=== PATIENT | female | born 1940 | race Caucasian/White ===

== ENCOUNTER 2016-12-24 13:48 | Inpatient (IN) | payer MEDICARE, BC ==
[~2016-12-24] VITALS: Ht 167.6 cm; Wt 81.4 kg
[2016-12-24] VITALS (8 sets, daily range): BP systolic 117–196; BP diastolic 60–91; PULSE 83–119; RESP 14–22; TEMP 97.5–98.2; O2SAT 94–100
[~2016-12-24 13:48] MED LIST: CALA180T PO; DILT240C7 PO; ENOX100P SQ; FLEC100 PO; FURO1TAB93 PO; GLUC1000 PO; LEVEMIR SQ; MOBI15TA PO; MONT10TA2 PO; POTA-267 PO; QUIN20TA22 PO; WARF5TAB PO
[2016-12-24] MEDS ORDERED: DILT360C12 PO (14:09)
[2016-12-24] MEDS ORDERED: FLEC100T PO (14:09)
[2016-12-24] MEDS ORDERED: WARF-23 PO (14:13)
[2016-12-24] MEDS ORDERED: QUIN20TA4 PO (14:13)
[2016-12-24] MEDS ORDERED: INSU1INJ5 SQ (14:13)
[2016-12-24] MEDS ORDERED: MONT10TA4 PO (14:13)
[2016-12-24] MEDS ORDERED: CANA100T PO (14:13)
[2016-12-24] MEDS ORDERED: MELO-1 PO (14:13)
[2016-12-24] MEDS ORDERED: METF1000 PO (14:13)
[2016-12-24] MEDS ORDERED: SIMV5TAB3 PO (14:13)
[2016-12-24] MEDS ORDERED: SODIUM CHLORIDE 0.9% FLUSH 10 ML FLUSH IVF PRN (14:30)
--- NOTE | 2016-12-24 14:40 | PD ---
HPI Chief Complaint: Abnormal Results Time Seen by Provider: 14:29 Travel History International Travel<30 days: No Contact w/Intl Traveler<30days: No Traveled to known affect area: No History of Present Illness HPI Patient is a 76 -year-old female presenting to the emergency department due to abnormal labs. Patient was sent by her air cargo ground operations supervisor Dr. Baron, due to an INR that was reportedly 16. Additionally patient reported to him that she had been more short of breath with and without exertion and had a CT scan of the chest performed this morning as outpatient. She states that she has a history of COPD and the shortness of breath has been worsening for the last year. He does sleep with a wedge and one pillow at night. Patient also reports dysuria and cloudy urine for the last week. She states that she was recently discharged from the hospital on December 12 due to pelvic pain and dysuria. Patient is followed by Dr. Cowan as well as Dr. Sanders who she is supposed to see later this week. PFSH Past Medical History Hx Anticoagulant Therapy: Yes (STOPPED YESTERDAY) Atrial Fibrillation: Yes Heart Rhythm Problems: Yes (sick sinus syndrome, carotid stenosis) Cancer: No Cardiovascular Problems: Yes Chest Pain: No Congestive Heart Failure: Yes COPD: Yes Cerebrovascular Accident: Yes Diabetes: Yes (METFORMIN 12/24/16) Gastrointestinal Disorders: No Glaucoma: No Hepatitis: No Hiatal Hernia: No Hypertension: Yes Neurologic: Yes (TIA) Respiratory: Yes Integumentary: No Thyroid Disease: No Past Surgical History Cardiac Surgery: Yes (PACEMAKER) Genitourinary Surgery: Yes (CYSTOCILE REPAIR) Gynecologic Surgery: Yes (HYSTERECTOMY) Hysterectomy: Yes Other Surgery: Yes (GALLBLADDER REMOVED) Social History Alcohol Use: No Tobacco Use: No Substance Use: No Allergies-Medications (Allergen,Severity, Reaction): Coded Allergies: No Known Allergies (Unverified , 12/24/16) Reported Meds & Prescriptions Reported Meds & Active Scripts Active Reported Levemir Flextouch Pen Inj (Insulin Detemir) 300 unit/3 ML Pen 25 Units SQ Warfarin 5 Mg Tab 5 Mg PO DAILY Simvastatin 5 Mg Tab 5 Mg PO DAILY Invokana (Canagliflozin) 100 Mg Tab 100 Mg PO DAILY Take before 1st meal of day. Quinapril (Quinapril HCl) 20 Mg Tab 20 Mg PO BID Montelukast (Montelukast Sodium) 10 Mg Tab 10 Mg PO HS Meloxicam 15 Mg Tab 15 Mg PO DAILY Metformin (Metformin HCl) 1,000 Mg Tab 1,000 Mg PO BIDPC With meals Diltiazem CD 24 HR 360 Mg Capcr 360 Mg PO DAILY Review of Systems Except as stated in HPI: all other systems reviewed are Neg General / Constitutional: No: Fever, Chills Eyes: No: Blurred Vision, Visual changes HENT: No: Headaches, Lightheadedness Cardiovascular: No: Chest Pain or Discomfort Respiratory: Positive: Shortness of Breath, No: Cough, Wheezing, Pleuritic Pain Gastrointestinal: Positive: Diarrhea (chronic issue), No: Nausea, Vomiting, Abdominal Pain Genitourinary: Positive: Frequency, Dysuria, Pelvic Pain Musculoskeletal: No: Myalgias Neurologic: No: Dizziness, Syncope, Focal Abnormalities Hematologic/Lymphatic: No: Easy Bruising Physical Exam Narrative GENERAL: Overweight, well-developed, alert elderly female. Resting comfortably in no acute distress. SKIN: Focused skin assessment warm/dry. HEAD: Atraumatic. Normocephalic. EYES: Pupils equal and round. No scleral icterus. No injection or drainage. ENT: No nasal bleeding or discharge. Mucous membranes pink and moist. NECK: Trachea midline. No JVD. CARDIOVASCULAR: Regular rate and rhythm. No murmur appreciated. RESPIRATORY: No accessory muscle use. Clear to auscultation. Breath sounds equal bilaterally. GASTROINTESTINAL: Abdomen soft, non-tender, nondistended. Hepatic and splenic margins not palpable. MUSCULOSKELETAL: No obvious deformities. No clubbing. No cyanosis. No edema. NEUROLOGICAL: Awake and alert. No obvious cranial nerve deficits. Motor grossly within normal limits. Normal speech. PSYCHIATRIC: Appropriate mood and affect; insight and judgment normal. Data Data Last Documented VS Vital Signs Date Time Temp Pulse Resp B/P Pulse Ox O2 Delivery O2 Flow Rate FiO2 12/24/16 16:30 88 21 196/86 98 Room Air 12/24/16 13:50 97.5 Orders Complete Blood Count With Diff (12/24/16 13:58) Comprehensive Metabolic Panel (12/24/16 13:58) Prothrombin Time / Inr (Pt) (12/24/16 13:58) Act Partial Throm Time (Ptt) (12/24/16 13:58) Urinalysis - C+S If Indicated (12/24/16 14:18) Type And Screen (12/24/16 14:18) Ecg Monitoring (12/24/16 14:18) Iv Access Insert/Monitor (12/24/16 14:18) Oximetry (12/24/16 14:18) Sodium Chloride 0.9% Flush (Ns Flush) (12/24/16 14:30) B-Type Natriuretic Peptide (12/24/16 14:19) Urine Culture (12/24/16 14:50) Ceftriaxone Inj (Rocephin Inj) (12/24/16 16:00) Phytonadione Inj (Vitamin K Inj) (12/24/16 18:00) Admit Order (Ed Use Only) (12/24/16 17:16) Labs Laboratory Tests Test 12/24/16 12/24/16 12/24/16 14:15 14:50 16:10 White Blood Count 7.1 TH/MM3 Red Blood Count 4.89 MIL/MM3 Hemoglobin 13.1 GM/DL Hematocrit 39.6 % Mean Corpuscular Volume 81.1 FL Mean Corpuscular Hemoglobin 26.8 PG Mean Corpuscular Hemoglobin 33.0 % Concent Red Cell Distribution Width 15.2 % Platelet Count 309 TH/MM3 Mean Platelet Volume 7.9 FL Neutrophils (%) (Auto) 66.6 % Lymphocytes (%) (Auto) 20.4 % Monocytes (%) (Auto) 10.9 % Eosinophils (%) (Auto) 0.7 % Basophils (%) (Auto) 1.4 % Neutrophils # (Auto) 4.7 TH/MM3 Lymphocytes # (Auto) 1.5 TH/MM3 Monocytes # (Auto) 0.8 TH/MM3 Eosinophils # (Auto) 0.1 TH/MM3 Basophils # (Auto) 0.1 TH/MM3 CBC Comment DIFF FINAL Differential Comment Sodium Level 131 MEQ/L Potassium Level 5.0 MEQ/L Chloride Level 100 MEQ/L Carbon Dioxide Level 21.4 MEQ/L Anion Gap 10 MEQ/L Blood Urea Nitrogen 16 MG/DL Creatinine 0.97 MG/DL Estimat Glomerular Filtration 56 ML/MIN Rate Random Glucose 112 MG/DL Calcium Level 9.4 MG/DL Total Bilirubin 0.2 MG/DL Aspartate Amino Transf 31 U/L (AST/SGOT) Alanine Aminotransferase 35 U/L (ALT/SGPT) Alkaline Phosphatase 118 U/L B-Type Natriuretic Peptide 23 PG/ML Total Protein 7.4 GM/DL Albumin 2.9 GM/DL Blood Type A POSITIVE Antibody Screen NEGATIVE Blood Bank Comment Urine Color YELLOW Urine Turbidity CLOUDY Urine pH 6.0 Urine Specific [place] 1.023 Urine Protein 30 mg/dL Urine Glucose (UA) 1000 mg/dL Urine Ketones 10 mg/dL Urine Occult Blood LARGE Urine Nitrite NEG Urine Bilirubin NEG Urine Urobilinogen LESS THAN 2.0 MG/DL Urine Leukocyte Esterase LARGE Urine RBC /hpf Urine WBC /hpf Urine WBC Clumps OCC Urine Bacteria FEW /hpf Microscopic Urinalysis Comment CULTURE INDICATED Prothrombin Time GREATER THAN 180.0 SEC Prothromb Time International GREATER THAN Ratio 16.7 RATIO Activated Partial 109.5 SEC Thromboplast Time MDM Medical Decision Making Medical Screen Exam Complete: Yes Emergency Medical Condition: Yes Interpretation(s) Laboratory Tests Test 12/24/16 12/24/16 12/24/16 14:15 14:50 16:10 White Blood Count 7.1 TH/MM3 Red Blood Count 4.89 MIL/MM3 Hemoglobin 13.1 GM/DL Hematocrit 39.6 % Mean Corpuscular Volume 81.1 FL Mean Corpuscular Hemoglobin 26.8 PG Mean Corpuscular Hemoglobin 33.0 % Concent Red Cell Distribution Width 15.2 % Platelet Count 309 TH/MM3 Mean Platelet Volume 7.9 FL Neutrophils (%) (Auto) 66.6 % Lymphocytes (%) (Auto) 20.4 % Monocytes (%) (Auto) 10.9 % Eosinophils (%) (Auto) 0.7 % Basophils (%) (Auto) 1.4 % Neutrophils # (Auto) 4.7 TH/MM3 Lymphocytes # (Auto) 1.5 TH/MM3 Monocytes # (Auto) 0.8 TH/MM3 Eosinophils # (Auto) 0.1 TH/MM3 Basophils # (Auto) 0.1 TH/MM3 CBC Comment DIFF FINAL Differential Comment Sodium Level 131 MEQ/L Potassium Level 5.0 MEQ/L Chloride Level 100 MEQ/L Carbon Dioxide Level 21.4 MEQ/L Anion Gap 10 MEQ/L Blood Urea Nitrogen 16 MG/DL Creatinine 0.97 MG/DL Estimat Glomerular Filtration 56 ML/MIN Rate Random Glucose 112 MG/DL Calcium Level 9.4 MG/DL Total Bilirubin 0.2 MG/DL Aspartate Amino Transf 31 U/L (AST/SGOT) Alanine Aminotransferase 35 U/L (ALT/SGPT) Alkaline Phosphatase 118 U/L B-Type Natriuretic Peptide 23 PG/ML Total Protein 7.4 GM/DL Albumin 2.9 GM/DL Blood Type A POSITIVE Antibody Screen NEGATIVE Blood Bank Comment Urine Color YELLOW Urine Turbidity CLOUDY Urine pH 6.0 Urine Specific [place] 1.023 Urine Protein 30 mg/dL Urine Glucose (UA) 1000 mg/dL Urine Ketones 10 mg/dL Urine Occult Blood LARGE Urine Nitrite NEG Urine Bilirubin NEG Urine Urobilinogen LESS THAN 2.0 MG/DL Urine Leukocyte Esterase LARGE Urine RBC /hpf Urine WBC /hpf Urine WBC Clumps OCC Urine Bacteria FEW /hpf Microscopic Urinalysis Comment CULTURE INDICATED Prothrombin Time GREATER THAN 180.0 SEC Prothromb Time International GREATER THAN Ratio 16.7 RATIO Activated Partial 109.5 SEC Thromboplast Time Vital Signs Date Time Temp Pulse Resp B/P Pulse Ox O2 Delivery O2 Flow Rate FiO2 12/24/16 14:16 86 14 150/69 100 12/24/16 13:50 97.5 91 18 117/63 94 Room Air Differential Diagnosis Supratherapeutic INR versus hemorrhage versus GI bleed versus medication noncompliance versus risk for bleeding versus other Narrative Course Patient is a 76-year-old female sent by her air cargo ground operations supervisor Dr. Baron due to an INR reported at 16.7. He also faxed over office notes which describe her recent hospitalization due to the abdominal pain/pelvic pain, dysuria. Patient was positive for urinary tract infection, acute kidney injury, dehydration and hyperkalemia. She went to her air cargo ground operations supervisor for preoperative clearance for a cystoscopy which resulted the elevated INR. According to the notes sent by Dr. Baron patient has been noncompliant with Coumadin. Patient has been instructed to stop Coumadin several times in the past due to elevated INR, but according to these medical records she would resume it on her own. Outpatient CT scan of the chest performed [place] today was negative for pulmonary embolism. On review of patient's medical records on 12/07/[address] scan abdomen and pelvis showed marked circumferential mural thickening and mucosal enhancement about the urinary bladder suspicious for cystitis, which is the reason for the cystoscopy as outpatient. Hemoccult card was negative for occult blood. INR elevated >16.7. Vitamin K 10 mg x 1 dose IV ordered. CBC is unremarkable Chemistry with a sodium of 131, albumin 2.9, BNP 23 Urinalysis with large occult blood, large leukocyte esterase, white blood cell clumps and bacteria. Patient given 1 g of Rocephin for urinary tract infection. Discussed with Dr. Mancini who accepted admission. Discussed with patient who is agreeable to inpatient stay. She is resting comfortably. BP elevated, hydralazine ordered times one dose. HemaPrompt Point of Care Fecal Specimen Occult Blood: Negative Diagnosis Primary Impression: Supratherapeutic INR Additional Impressions: Urinary tract infection Qualified Code: N30.01 - Acute cystitis with hematuria At risk for bleeding associated with anticoagulants Hypertension Qualified Code: I10 - Essential hypertension Diabetes Qualified Code: E11.8 - Type 2 diabetes mellitus with complication, unspecified custodial insulin use status Admitting Information Admitting Physician Requests: Admit Condition: Stable Nori Munson December 24, 2016 14:40
[2016-12-24 14:42] LABS: AUTOMATED NEUTROPHIL # 4.7 TH/MM3 (1.8-7.7); BASOPHIL # 0.1 TH/MM3 (0-0.2); BASOPHIL % 1.4 % (0.0-2.0); EOSINOPHIL # 0.1 TH/MM3 (0-0.4); EOSINOPHIL % 0.7 % (0.0-4.0); HEMATOCRIT 39.6 % (35.0-46.0); HEMO FLAGS DIFF FINAL; LYMPH % 20.4 % (9.0-44.0); LYMPHOCYTE # 1.5 TH/MM3 (1.0-4.8); MEAN CELL VOLUME 81.1 FL (80.0-100.0); MEAN CORPUSCULAR HEMOGLOBIN 26.8 PG (27.0-34.0); MONO % 10.9 % (0.0-8.0); NEUT % 66.6 % (16.0-70.0); PLATELET COUNT 309 TH/MM3 (150-450); RED BLOOD COUNT 4.89 MIL/MM3 (4.00-5.30); RED CELL DISTRIBUTION WIDTH 15.2 % (11.6-17.2); WHITE BLOOD COUNT 7.1 TH/MM3 (4.0-11.0)
[2016-12-24 14:58] LABS: ANION GAP 10 MEQ/L (5-15); AST (GOT) 31 U/L (15-37); BICARBONATE 21.4 MEQ/L (21.0-32.0); BLOOD UREA NITROGEN 16 MG/DL (7-18); CHLORIDE 100 MEQ/L (98-107); GLOMERULAR FILTRATION RATE 56 ML/MIN (>89); SODIUM (NA) 131 MEQ/L (136-145)
[2016-12-24 14:59] LABS: ALKALINE PHOSPHATASE 118 U/L (45-117); ALT (GPT) 35 U/L (10-53); TOTAL BILIRUBIN ADULT 0.2 MG/DL (0.2-1.0)
[2016-12-24 15:14] LABS: BACTERIA, URINE FEW /hpf; BLOOD, URINE LARGE (NEG); COMMENT (UR) CULTURE INDICATED; CULTURE IF INDICATED CULTURE INDICATED; GLUCOSE,URINE 1000 mg/dL (NEG); KETONE, URINE 10 mg/dL (NEG); NITRITE,URINE NEG (NEG); URINE COLOR YELLOW (YELLW/STRAW)
[2016-12-24] MEDS ORDERED: cefTRIAXone INJ 1,000 MG in SODIUM CHLORIDE 0.9% INJ 100 ML IV ONE (16:00)
[2016-12-24 17:01] LABS: APTT (PATIENT) 109.5 SEC (24.3-30.1)
[2016-12-24 17:02] LABS: INTERNATIONAL NORMALIZED RATIO GREATER THAN 16.7 RATIO
[2016-12-24 17:03] LABS: PROTHROMBIN TIME - PATIENT GREATER THAN 180.0 SEC (9.8-11.6)
[2016-12-24] MEDS ORDERED: SENNOSIDES 8.6 MG TAB PO PRN (17:30)
[2016-12-24] MEDS ORDERED: NALOXONE HCL 0.4 MG/ML AMP IV PRN (17:30)
[2016-12-24] MEDS ORDERED: SODIUM CHLORIDE 0.9% FLUSH 10 ML FLUSH IV FLUSH PRN (17:30)
[2016-12-24] MEDS ORDERED: LACTULOSE SYRUP 20 GM/30 ML CUP PO PRN (17:30)
[2016-12-24] MEDS ORDERED: MAGNESIUM HYDROXIDE SUSP 30 ML CUP PO PRN (17:30)
[2016-12-24] MEDS ORDERED: BISACODYL 10 MG SUPP RECTAL PRN (17:30)
[2016-12-24] MEDS ORDERED: hydrALAZINE HCL 20 MG/ML VIAL IV PUSH ONE (17:45)
[2016-12-24] MEDS ORDERED: PHYTONADIONE INJ 10 MG in SODIUM CHLORIDE 0.9% INJ 50 ML IV ONE (18:00)
[2016-12-24] MEDS ORDERED: GLUCAGON 1 MG/ML VIAL OTHER PRN (18:45)
[2016-12-24] MEDS ORDERED: SODIUM CHLOR 0.9% 1000 ML INJ 1,000 ML IV SCH (18:45)
[2016-12-24] MEDS ORDERED: DEXTROSE 50% IN WATER 50 ML VIAL(D50) IV PRN (18:45)
--- NOTE | 2016-12-24 18:56 | HHI.PR ---
Objective Objective Results - Vital Signs Date Time Temp Pulse Resp B/P Pulse Ox O2 Delivery O2 Flow Rate FiO2 12/24/16 16:30 88 21 196/86 98 Room Air 12/24/16 15:32 94 Room Air 12/24/16 15:31 85 22 150/91 94 Room Air 12/24/16 14:16 86 14 150/69 100 12/24/16 13:50 97.5 91 18 117/63 94 Room Air Result Diagram: 12/24/16 1415 12/24/16 1415 Physical Exam Physical Exam PHYSICAL EXAMINATION GENERAL: This is a well-developed, well-nourished female who appears to be in no acute distress. She is alert and awake, []. HEAD: Normocephalic without any lesion or mass noted. Facial features appear symmetric. OROPHARYNGEAL: Oropharynx without erythema or edema. NECK: Supple. No nuchal rigidity or lymphadenopathy. Trachea midline without deviation. CARDIAC: Regular rhythm, regular rate, S1 and S2 are heard. Murmur []; no gallops or rubs. LUNGS: Clear to auscultation bilaterally. [] wheeze, [] rhonchi or [] rale. No use of accessory muscles on inspiration or expiration. ABDOMEN: Soft, nontender, no organomegaly or masses. Bowel sounds are heard in all four quadrants. No rebound. No guarding. EXTREMITIES: [] edema. Pulses equal bilateral. [] cyanosis. NEUROLOGICAL: Patient mood and affect appropriate. No focal deficit SKIN:Warm and moist A/P Assessment and Plan dictated, [id number] Started on Rocephin 2gm. IV, patient has been recently treated. [place] December 24, 2016 18:55
[2016-12-24] MEDS: LISINOPRIL 20 MG TAB PO SCH (21:00)
[2016-12-24] MEDS: INSULIN ASPART SUPPLEMENTAL SCALE SQ SCH (21:00)
[2016-12-24] MEDS: MONTELUKAST SODIUM 10 MG TAB PO SCH (22:30)
[2016-12-24] MEDS: DOCUSATE SODIUM 50 MG/SENNA 8.6 MG TAB PO SCH (22:31)
[2016-12-24] MEDS: SODIUM CHLORIDE 0.9% FLUSH 10 ML FLUSH IV FLUSH SCH (22:33)
[2016-12-25 04:25] LABS: AUTOMATED NEUTROPHIL # 4.1 TH/MM3 (1.8-7.7); BASOPHIL % 0.7 % (0.0-2.0); EOSINOPHIL # 0.1 TH/MM3 (0-0.4); HEMATOCRIT 38.3 % (35.0-46.0); HEMO FLAGS DIFF FINAL; LYMPH % 18.2 % (9.0-44.0); LYMPHOCYTE # 1.1 TH/MM3 (1.0-4.8); MEAN CELL VOLUME 80.5 FL (80.0-100.0); MEAN CORPUSCULAR HEMOGLOBIN 26.3 PG (27.0-34.0); MEAN CORPUSCULAR HGB CONC 32.7 % (32.0-36.0); MONO % 14.7 % (0.0-8.0); NEUT % 65.4 % (16.0-70.0); PLATELET COUNT 268 TH/MM3 (150-450); RED BLOOD COUNT 4.75 MIL/MM3 (4.00-5.30); RED CELL DISTRIBUTION WIDTH 15.3 % (11.6-17.2); WHITE BLOOD COUNT 6.2 TH/MM3 (4.0-11.0)
[2016-12-25 04:38] VITALS: BP 123/56; PULSE 86; RESP 17; TEMP 98; O2SAT 95
[2016-12-25 04:39] LABS: INTERNATIONAL NORMALIZED RATIO 1.5 RATIO; PROTHROMBIN TIME - PATIENT 17.4 SEC (9.8-11.6)
[2016-12-25 04:48] LABS: BICARBONATE 21.1 MEQ/L (21.0-32.0); POTASSIUM 5.3 MEQ/L (3.5-5.1)
[2016-12-25 07:34] VITALS: BP 129/60; PULSE 88; RESP 20; TEMP 97.7; O2SAT 92
[2016-12-25 08:20] VITALS: PULSE 87
--- NOTE | 2016-12-25 08:21 | MH ---
cc: STEFAN SANCHEZ MD DATE OF ADMISSION 12/24/2016 DATE OF 1940 The case has been discussed with Dr. Mancini. CHIEF COMPLAINT Chills, cold sensation, UTI symptoms with dysuria. High INR. Travel in the last 30 days none. HISTORY OF PRESENT ILLNESS This is a 76-year-old female who has come to the emergency room with abnormal labs. She was seen by her variety performer yesterday who reported an INR according to the record at 16. She was started on a new blood thinning medication but states that she has been having shortness of breath all day today. She is extremely anxious and is currently complaining of shortness of breath but her O2 sat is 97-99. She is on oxygen at 2 liters. She also complains of significant burning and dysuria when she goes to the bathroom. She has had diarrhea off and on for the past few weeks and states that she possibly had diarrhea this morning. She is a poor historian. She is given me multiple symptoms that are given her problems but cannot always give me the exact information or time frame that these things are happening. She was recently discharged from the hospital on December 12 with pelvic pain and dysuria. PAST MEDICAL HISTORY 1. Coumadin therapy that was stopped yesterday. 2. History of atrial fib. 3. Sick sinus syndrome. 4. Carotid stenosis. 5. Cardiovascular disease. 6. Congestive heart failure. 7. COPD. 8. CVA. 9. Diabetes mellitus type 2, takes metformin. 10. Hypertension. 11. Transient ischemic attacks. 12. Anxiety. PAST SURGICAL HISTORY 1. Pacemaker. 2. Cystocele repair. 3. Hysterectomy. 4. Gallbladder removed. ALLERGIES None known. MEDICATIONS Reported: 1. Levemir insulin. 2. Coumadin has been stopped so we will take that off. 3. Simvastatin. 4. Invokana. 5. Quinipril. 6. Montelukast. 7. Meloxicam. 8. Metformin, 9. Diltiazem. SOCIAL HISTORY Denies any tobacco, alcohol or illicit drug use. REVIEW OF SYSTEMS Limited review due to her poor history but she is having symptoms and struggling with dysuria, diarrhea, cold sensation all the time, agitation and anxiety. Otherwise systems are negative and are unremarkable. PHYSICAL EXAMINATION VITAL SIGNS: Temperature is 97.5, pulse 88, respirations labile between 18 and 21, blood pressure initially on admission 117/63 now 196/86. Has been 150/91. O2 sats 98% currently on room air or O2 at 2 liters p.r.n. GENERAL: Obese, white female looks to be her stated age, resting in the bed. She is alert, awake and slightly anxious. SKIN: Pale, cool extremities but pulses are palpable. HEENT: Atraumatic, normocephalic. PERRL at 2. No scleral icterus. NECK: Supple. CARDIOVASCULAR: S1-S2, regular rate and rhythm. No murmurs, rubs or gallops. RESPIRATORY: Essentially clear anteriorly and posteriorly with no wheezes, rales or rhonchi but she does have low air volumes. GASTROINTESTINAL: Abdomen is round, soft, obese, nontender in the upper quadrants. She does have some generalized tenderness down in the mid lower and pain to light palpation. MUSCULOSKELETAL: She moves all of her extremities with purpose. She is having some mild leg cramps in her lower extremities. NEUROLOGIC: She is alert. A poor historian. She is giving generalized symptom information, mildly agitated over current condition. PSYCHIATRIC: Mood and affect as noted are anxious . LABORATORY DATA Diagnostic data, WBC count 7.1, RBC 4.89, 13.1 hemoglobin, hematocrit 39.6, platelet count 309, monocyte percentage auto 10.9. All of the rest of her differential blood count is normal. Chemistry, sodium is 131, potassium 5.0, chloride 100, carbon dioxide 21.4, anion gap 10, BUN 16, creatinine 0.97, GFR is 56, random glucose 112. She has an abnormal on alkaline phosphatase is 118. BNP is 23. Albumin 2.9. The patient's PT INR is greater than 16.7 and her aPTT is 109.5. Her urine is yellow, cloudy, pH 6.0, specific gravity 1.023, protein is 30, glucose is a 1000, ketones of 10, large amount of occult blood and a large amount of leukocyte esterase. Urobilinogen is less than 2. She has bacteria. We got a urine culture that is indicated. ASSESSMENT/PLAN 1. Coumadin toxicity with subtherapeutic INR. 2. Urinary tract infection with acute cystitis and hematuria. 3. Hypertension, uncontrolled. 4. Diabetes type 2 uncontrolled. 5. Hyponatremia. 6. Elevated alkaline phosphatase. 7. Mild protein calorie malnutrition. Our plan is to admit. We are placing her on observation. We will do ECG monitoring. IV access. Vital signs q.4 or as warranted. Bedrest for activity this p.m. reconcile her medications. Give her hydralazine for uncontrolled blood pressure. Accu-Cheks a.c. and at bedtime with a sliding scale in the glycemic protocol. The patient will be started on her routine meds. She has had multiple labs drawn in the emergency room which includes a dose of IV Rocephin that has been given;. We will maintain her on that medication. To my knowledge the patient is full code, full aggressive care and we will follow. Dictated by: AILEEN Horton MD KAT Mata/MAY /6:46 PM /8:13 AM
[2016-12-25] MEDS: INSULIN ASPART SUPPLEMENTAL SCALE SQ SCH ×4 (08:41→20:22)
[2016-12-25] MEDS: PRAVASTATIN SOD 10 MG TAB PO SCH (08:41)
[2016-12-25] MEDS: DOCUSATE SODIUM 50 MG/SENNA 8.6 MG TAB PO SCH ×2 (08:41→20:26)
[2016-12-25] MEDS: DILTIAZEM-CD 180 MG CAP ER PO SCH (08:41)
[2016-12-25] MEDS: LISINOPRIL 20 MG TAB PO SCH (08:42)
[2016-12-25] MEDS: SODIUM CHLORIDE 0.9% FLUSH 10 ML FLUSH IV FLUSH SCH ×2 (09:00→20:16)
[2016-12-25] MEDS ORDERED: PNEUMOCOCCAL POLYVALENT INJ 25 MCG/0.5 ML SYR IM ONE (09:00)
--- NOTE | 2016-12-25 09:29 | HHI.PR ---
Subjective Subjective Remarks feeling better no cp no sob some dysuria eating okay no fever Review of Systems Constitutional Constitutional Remarks 12 point ROS completed, negative except as noted above Vitals/Results Intake & Output 12/24/16 12/24/16 12/25/16 15:00 23:00 07:00 Intake Total 200 ml 200 ml Output Total 400 ml Balance 200 ml -200 ml Intake Oral 200 ml 200 ml Output Urine Total 400 ml Vital Signs Vital Signs Date Time Temp Pulse Resp B/P Pulse Ox O2 Delivery O2 Flow Rate FiO2 12/25/16 08:20 87 12/25/16 07:34 97.7 88 20 129/60 92 12/25/16 04:38 98.0 86 17 123/56 95 12/24/16 23:49 97.6 106 18 148/81 94 12/24/16 20:15 99 12/24/16 19:36 98.2 106 17 123/61 97 12/24/16 18:44 83 22 132/60 98 12/24/16 16:30 88 21 196/86 98 Room Air 12/24/16 15:32 94 Room Air 12/24/16 15:31 85 22 150/91 94 Room Air 12/24/16 14:16 86 14 150/69 100 12/24/16 13:50 97.5 91 18 117/63 94 Room Air CBC/BMP: 12/25/16 0407 12/25/16 0407 Lab Results Laboratory Tests Test 12/24/16 12/24/16 12/24/16 12/25/16 14:15 14:50 16:10 04:07 White Blood Count 7.1 TH/MM3 6.2 TH/MM3 Red Blood Count 4.89 MIL/MM3 4.75 MIL/MM3 Hemoglobin 13.1 GM/DL 12.5 GM/DL Hematocrit 39.6 % 38.3 % Mean Corpuscular Volume 81.1 FL 80.5 FL Mean Corpuscular Hemoglobin 26.8 PG 26.3 PG Mean Corpuscular Hemoglobin 33.0 % 32.7 % Concent Red Cell Distribution Width 15.2 % 15.3 % Platelet Count 309 TH/MM3 268 TH/MM3 Mean Platelet Volume 7.9 FL 7.7 FL Neutrophils (%) (Auto) 66.6 % 65.4 % Lymphocytes (%) (Auto) 20.4 % 18.2 % Monocytes (%) (Auto) 10.9 % 14.7 % Eosinophils (%) (Auto) 0.7 % 1.0 % Basophils (%) (Auto) 1.4 % 0.7 % Neutrophils # (Auto) 4.7 TH/MM3 4.1 TH/MM3 Lymphocytes # (Auto) 1.5 TH/MM3 1.1 TH/MM3 Monocytes # (Auto) 0.8 TH/MM3 0.9 TH/MM3 Eosinophils # (Auto) 0.1 TH/MM3 0.1 TH/MM3 Basophils # (Auto) 0.1 TH/MM3 0.0 TH/MM3 CBC Comment DIFF FINAL DIFF FINAL Differential Comment Sodium Level 131 MEQ/L 136 MEQ/L Potassium Level 5.0 MEQ/L 5.3 MEQ/L Chloride Level 100 MEQ/L 104 MEQ/L Carbon Dioxide Level 21.4 MEQ/L 21.1 MEQ/L Anion Gap 10 MEQ/L 11 MEQ/L Blood Urea Nitrogen 16 MG/DL 14 MG/DL Creatinine 0.97 MG/DL 0.72 MG/DL Estimat Glomerular Filtration 56 ML/MIN 78 ML/MIN Rate Random Glucose 112 MG/DL 170 MG/DL Calcium Level 9.4 MG/DL 9.3 MG/DL Total Bilirubin 0.2 MG/DL Aspartate Amino Transf 31 U/L (AST/SGOT) Alanine Aminotransferase 35 U/L (ALT/SGPT) Alkaline Phosphatase 118 U/L B-Type Natriuretic Peptide 23 PG/ML Total Protein 7.4 GM/DL Albumin 2.9 GM/DL Blood Type A POSITIVE Antibody Screen NEGATIVE Blood Bank Comment Urine Color YELLOW Urine Turbidity CLOUDY Urine pH 6.0 Urine Specific [place] 1.023 Urine Protein 30 mg/dL Urine Glucose (UA) 1000 mg/dL Urine Ketones 10 mg/dL Urine Occult Blood LARGE Urine Nitrite NEG Urine Bilirubin NEG Urine Urobilinogen LESS THAN 2.0 MG/DL Urine Leukocyte Esterase LARGE Urine RBC /hpf Urine WBC /hpf Urine WBC Clumps OCC Urine Bacteria FEW /hpf Microscopic Urinalysis Comment CULTURE INDICATED Prothrombin Time GREATER THAN 17.4 SEC 180.0 SEC Prothromb Time International GREATER THAN 1.5 RATIO Ratio 16.7 RATIO Activated Partial 109.5 SEC Thromboplast Time Microbiology Microbiology 12/24/16 Urine Culture, Received Pending Physical Exam General General Appearance: Well Developed, Well Nourished, No Acute Distress, Comfortable Eyes Eye Exam: Pupils Equal, Pupils Reactive Ears & Nose Ears & Nose Exam: Nasal Mucosa [place] Throat Throat Exam: Oral Mucosa [place] & Moist Neck Neck Exam: Neck Supple, Trachea Midline Pulmonary Resp Exam: Clear Bilaterally, No Distress Cardiology CV Exam: Good Perfusion Gastrointestinal/Abdomen GI Exam: Soft, Non-Tender, Bowel Sounds Present, Non-Distended Musculoskeletal MS Exam: Joints Intact Integumentary Skin Exam: Warm, Intact Extremeties Extremities Exam: Pedal Pulses Palpable, Trace Edema Neurologic Neuro Exam: Alert, Awake, Oriented, Speech Clear, Moving All Extremities, No Focal Deficits Psychiatric Psych Exam: Appropriate Responses Assessment/Plan Problem List: (1) Urinary tract infection (2) Diabetes (3) Hypertension (4) Supratherapeutic INR (5) Atrial fibrillation (6) History of CVA (cerebrovascular accident) (7) Diarrhea Assessment/Plan 76-year-old presented to emergency room with multiple complaints, diarrhea, supratherapeutic INR, mild shortness of breath, dysuria -Continue with antibiotics, follow urine cultures -Okay to discontinue IV fluids Type 2 diabetes, uncontrolled Continue with Accu-Cheks before meals and at bedtime Chronic A. fib Continue Cardizem Continue with Xarelto Diarrhea, now resolving We'll check stools for C. difficile Hyperkalemia, potassium 5.3 Hold lisinopril today, may resume tomorrow if potassium back to normal. Supratherapeutic INR, INR today 1.5. Continue to follow INR, patient off Coumadin. Attending discussed with patient 's cardiology, patient will be started on Xarelto for improve compliance. Hypertension, hypertensive control Continue home medications Continue when necessary medication Continue with home medications Physical therapy for evaluation and treatment Case management consultation for DC planning, possibly home tomorrow Repeat labs in the morning Discussed with patient Discussed with Dr. Lynch Discussed with RN This patient was seen by myself and Dr. Lynch, this note is written on her behalf Problem Qualifiers (1) Urinary tract infection: Qualified Code: N30.01 - Acute cystitis with hematuria (2) Diabetes: Qualified Code: E11.8 - Type 2 diabetes mellitus with complication, unspecified intermediate manager insulin use status (3) Hypertension: Qualified Code: I10 - Essential hypertension (4) Atrial fibrillation: Qualified Code: I48.91 - Atrial fibrillation, unspecified type Jagruti Kyle December 25, 2016 09:29
--- NOTE | 2016-12-25 09:32 | HHI.FF ---
Face to Face Verification Diagnosis: (1) At risk for bleeding associated with anticoagulants (2) Urinary tract infection (3) Diabetes (4) Hypertension (5) Supratherapeutic INR Physical Therapy Order: Evaluate and Treat Home Health Nursing Order: Medical education Medication education-adverse effect I have seen patient Christen Dee on 12/25/16. My clinical findings support the need for the requested home health care services because: Limited ability to care for self Need for psychosocial assistance I certify that my clinical findings support that this patient is homebound because: Need for psychosocial assistance Jagruti Kyle BRIM SHAPER December 25, 2016 09:32
[2016-12-25 11:17] VITALS: BP 119/57; PULSE 96; RESP 18; TEMP 97.8; O2SAT 95
[2016-12-25 13:41] LABS: C. DIFF EPI 027 PRESUMPTIVE NEGATIVE (NEGATIVE); C. DIFF TOXIN PCR NEGATIVE (NEGATIVE)
[2016-12-25 15:21] VITALS: BP 116/52; PULSE 70; RESP 21; TEMP 97.9; O2SAT 94
[2016-12-25 15:53] LABS: INTERNATIONAL NORMALIZED RATIO 1.3 RATIO; PROTHROMBIN TIME - PATIENT 15.1 SEC (9.8-11.6)
[2016-12-25] MEDS: cefTRIAXone INJ 2,000 MG in SODIUM CHLORIDE 0.9% INJ 100 ML IV SCH (17:58)
[2016-12-25 19:38] VITALS: BP 108/53; PULSE 79; RESP 18; TEMP 97.6; O2SAT 94
[2016-12-25] MEDS: MONTELUKAST SODIUM 10 MG TAB PO SCH (20:16)
[2016-12-26] VITALS (14 sets, daily range): BP systolic 82–129; BP diastolic 50–72; PULSE 77–150; RESP 18–20; TEMP 97.2–98.5; O2SAT 91–96
[2016-12-26] MEDS: INSULIN ASPART SUPPLEMENTAL SCALE SQ SCH ×4 (06:13→22:10)
--- NOTE | 2016-12-26 07:29 | HHI.PR ---
Vitals/Results Intake & Output 12/25/16 12/25/16 12/26/16 15:00 23:00 07:00 Intake Total 240 ml Output Total 500 ml Balance -260 ml Intake Oral 240 ml Output Urine Total 500 ml # Voids 2 # Bowel Movements 2 Vital Signs Vital Signs Date Time Temp Pulse Resp B/P Pulse Ox O2 Delivery O2 Flow Rate FiO2 12/26/16 03:37 98.2 90 18 120/58 95 12/26/16 00:22 98.5 81 18 129/62 91 12/25/16 19:38 97.6 79 18 108/53 94 12/25/16 15:21 97.9 70 21 116/52 94 12/25/16 11:17 97.8 96 18 119/57 95 12/25/16 08:20 87 12/25/16 07:34 97.7 88 20 129/60 92 CBC/BMP: 12/25/16 0407 12/25/16 0407 Lab Results Laboratory Tests Test 12/25/16 12/25/16 12:20 14:57 Stool C. difficile Toxin (PCR) NEGATIVE Stl C. difficile Toxin PRESUMPTIVE Epiderm 027 NEGATIVE Prothrombin Time 15.1 SEC Prothromb Time International 1.3 RATIO Ratio Physical Exam General General Appearance: Well Developed, Well Nourished, No Acute Distress, Comfortable Eyes Eye Exam: Pupils Equal, Pupils Reactive Ears & Nose Ears & Nose Exam: Nasal Mucosa Ponder Throat Throat Exam: Oral Mucosa Ponder & Moist Neck Neck Exam: Neck Supple, Trachea Midline Pulmonary Resp Exam: Clear Bilaterally, No Distress Cardiology CV Exam: Good Perfusion Gastrointestinal/Abdomen GI Exam: Soft, Non-Tender, Bowel Sounds Present, Non-Distended Musculoskeletal MS Exam: Joints Intact Integumentary Skin Exam: Warm, Intact Extremeties Extremities Exam: Pedal Pulses Palpable, Trace Edema Neurologic Neuro Exam: Alert, Awake, Oriented, Speech Clear, Moving All Extremities, No Focal Deficits Psychiatric Psych Exam: Appropriate Responses Assessment/Plan Problem List: (1) Urinary tract infection (2) Diabetes (3) Hypertension (4) Supratherapeutic INR (5) Atrial fibrillation (6) History of CVA (cerebrovascular accident) (7) Diarrhea Assessment/Plan (1) Urinary tract infection (2) Diabetes (3) Hypertension (4) Supratherapeutic INR (5) Atrial fibrillation (6) History of CVA (cerebrovascular accident) (7) Diarrhea Assessment/Plan 76-year-old presented to emergency room with multiple complaints, diarrhea, supratherapeutic INR, mild shortness of breath, dysuria -Continue with antibiotics, follow urine cultures -Okay to discontinue IV fluids Type 2 diabetes, uncontrolled Continue with Accu-Cheks before meals and at bedtime Chronic A. fib Continue Cardizem Continue with Xarelto Diarrhea, now resolving We'll check stools for C. difficile Hyperkalemia, potassium 5.3 Hold lisinopril today, may resume tomorrow if potassium back to normal. Supratherapeutic INR, INR today 1.5. Continue to follow INR, patient off Coumadin. Attending discussed with patient 's cardiology, patient will be started on Xarelto for improve compliance. Hypertension, hypertensive control Continue home medications Continue when necessary medication Continue with home medications Physical therapy for evaluation and treatment Case management consultation for DC planning, possibly home tomorrow Repeat labs in the morning Discussed with patient Discussed with Dr. Lynch Discussed with RN This patient was seen by myself and Dr. Lynch, this note is written on her behalf Problem Qualifiers (1) Urinary tract infection: Qualified Code: N30.01 - Acute cystitis with hematuria (2) Diabetes: (3) Hypertension: Qualified Code: I10 - Essential hypertension (4) Atrial fibrillation: Qualified Code: I48.91 - Atrial fibrillation, unspecified type [place] December 26, 2016 07:29
[2016-12-26 07:38] LABS: INTERNATIONAL NORMALIZED RATIO 1.7 RATIO; PROTHROMBIN TIME - PATIENT 19.2 SEC (9.8-11.6)
[2016-12-26 07:51] LABS: BICARBONATE 20.4 MEQ/L (21.0-32.0); POTASSIUM 4.7 MEQ/L (3.5-5.1)
[2016-12-26 07:54] LABS: HEMATOCRIT 36.4 % (35.0-46.0); MEAN CORPUSCULAR HEMOGLOBIN 26.4 PG (27.0-34.0); MEAN CORPUSCULAR HGB CONC 32.6 % (32.0-36.0); PLATELET COUNT 250 TH/MM3 (150-450); RED CELL DISTRIBUTION WIDTH 15.2 % (11.6-17.2); REVIEW FLAG FINAL; WHITE BLOOD COUNT 6.4 TH/MM3 (4.0-11.0)
--- NOTE | 2016-12-26 08:09 | HHI.PR ---
Subjective Remarks awake responsive resting in bed, bladder spasms incontinent Objective Objective Results - Vital Signs Date Time Temp Pulse Resp B/P Pulse Ox O2 Delivery O2 Flow Rate FiO2 12/26/16 08:01 97.4 88 20 115/57 95 12/26/16 03:37 98.2 90 18 120/58 95 12/26/16 00:22 98.5 81 18 129/62 91 12/25/16 19:38 97.6 79 18 108/53 94 12/25/16 15:21 97.9 70 21 116/52 94 12/25/16 11:17 97.8 96 18 119/57 95 12/25/16 08:20 87 I/O 12/25/16 12/25/16 12/25/16 12/26/16 12/26/16 12/26/16 07:00 15:00 23:00 07:00 15:00 23:00 Intake Total 200 ml 240 ml Output Total 400 ml 500 ml Balance -200 ml -260 ml Intake Oral 200 ml 240 ml Output Urine Total 400 ml 500 ml # Voids 2 # Bowel Movements 2 Result Diagram: 12/26/16 0610 12/26/16 0610 ROS General: Fatigue, Weakness GI: Abdominal Pain /LAB AID: Dysuria, Urgency, Other (incontinence) Physical Exam Physical Exam PHYSICAL EXAMINATION GENERAL: This is a elderly well-developed, female who appears to be in mild distress with urgency. She is awake, HEAD: Normocephalic without any lesion or mass noted. Facial features appear symmetric. OROPHARYNGEAL: Oropharynx without erythema or edema. NECK: Supple. No nuchal rigidity or lymphadenopathy. Trachea midline without deviation. CARDIAC: Regular rhythm, regular rate, S1 and S2 are heard. LUNGS: Clear to auscultation bilaterally. ABDOMEN: Soft, round, Bowel sounds are heard in all four quadrants. EXTREMITIES: no edema. Pulses palable NEUROLOGICAL: Patient mood and affect mild anxiety SKIN:Warm and moist,dry Objective Remarks Im ok except for lower abd pain A/P Assessment and Plan Assessment/Plan (1) Urinary tract infection (2) Diabetes (3) Hypertension (4) Supratherapeutic INR (5) Atrial fibrillation (6) History of CVA (cerebrovascular accident) (7) Diarrhea hx 76-year-old presented to emergency room with multiple complaints, diarrhea, supratherapeutic INR, mild shortness of breath, dysuria -Continue with antibiotics, follow urine cultures Type 2 diabetes, uncontrolled Continue with Accu-Cheks before meals and at bedtime Chronic A. fib Continue Cardizem Continue with Xarelto, new med no more coumadin Supratherapeutic INR, INR pending today, 1.3 yesterday Acute onset of afib, rate uncontrolled Called per staff around 0930, HR afib, uncontrolled 150s -170s, EKG ordered and done, BP 114/72 Over 15 min, HR decreased to 120s. Now resting laying down with O2 on 2 L. Pt. was sitting on side of bed, eating breakfast when HR excelled. Monitoring patient , cardiology consulted Cardizen bolus ordered, if patient becomes symptmatic with pain or SOB. Will transfer to [facility] on tele. Dr. Lynch notified. 2 d echo ordered. At 11:30, nurse called concerned with borderline low BP before she has given any Cardizem bolus. According to weight bolus should be 21 mg. Ordered for patient to get bolus at 15 mg over 3-4 minutes monitoring her blood pressure constantly and then pain Cardizem drip at 5. Goal is to decrease heart rate which is now in the 130s, and control BP at 90 systolic or greater. Hypertension, hypertensive control home medications Physical therapy for evaluation and treatment for safety and mobility eval vitals reviewed, labs pending DC possible home today has been held due to uncontrolled atrial fibrillation, with PO meds for UTI D/W Dr. Lynch, seen on her behalf Spring [place] December 26, 2016 08:09
[2016-12-26] MEDS: SODIUM CHLORIDE 0.9% FLUSH 10 ML FLUSH IV FLUSH SCH ×2 (08:47→22:01)
[2016-12-26] MEDS: ACETAMINOPHEN 325 MG TAB PO PRN ×3 (08:49→21:58)
[2016-12-26] MEDS: DILTIAZEM-CD 180 MG CAP ER PO SCH (08:50)
[2016-12-26] MEDS: DOCUSATE SODIUM 50 MG/SENNA 8.6 MG TAB PO SCH ×2 (08:51→21:00)
[2016-12-26] MEDS: PRAVASTATIN SOD 10 MG TAB PO SCH (08:51)
[2016-12-26] MEDS: PHENAZOPYRIDINE HCL 100 MG TAB PO SCH ×3 (08:51→21:58)
[2016-12-26] MEDS ORDERED: DILTIAZEM HCL 25 MG/5 ML VIAL IV PUSH ONE ×2 (09:45→10:15)
[2016-12-26] MEDS ORDERED: DILTIAZEM INJ 125 MG in SODIUM CHLORIDE 0.9% INJ 100 ML IV SCH (10:15)
--- NOTE | 2016-12-26 11:59 | MB ---
cc: EDMAR SHIRLEY DATE OF CONSULTATION 12/26/2016 REASON FOR CONSULTATION Ms. Dee is a 76 year-old white female patient of Dr. Baron with a history of sick sinus syndrome, atrial fibrillation, hypertension, TIA, COPD and congestive heart failure. She was brought to the emergency room with abnormal labs including high INR. She complained of dysuria, chills, and cold sensation. She has chronic dyspnea. She has not had any chest pain. PAST MEDICAL HISTORY Positive for: 1. Atrial fibrillation 2. TIA 3. Sick sinus syndrome 4. Carotid stenosis 5. Congestive heart failure 6. Diastolic dysfunction 7. COPD 8. TIA/CVA 9. Diabetes mellitus type 2 10. Hypertension 11. Anxiety 12. 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 Hysterectomy 2. Gallbladder removal MEDICATIONS Include: 1. Diltiazem 2. Metformin 3. Meloxicam one pill 4. Quinapril 5. Invokana 6. Simvastatin 7. Levemir 8. The patient was on Coumadin which was stopped. She was supposed to start anticoagulation with Xarelto. ALLERGIES None SOCIAL HISTORY The patient does not smoke. She does not drink alcohol. FAMILY HISTORY Negative for heart disease. REVIEW OF SYSTEMS Otherwise negative. PHYSICAL EXAM Blood pressure 115/57, pulse 88 and irregular. HEAD, EYES, EARS, NOSE, AND THROAT: Negative. 2+carotid upstrokes. No bruits. LUNGS: Clear. HEART: Irregular irregular with no murmur, gallop, or rub. ABDOMEN: Soft, no bruits. EXTREMITIES: Trace edema. 1-2+ distal pulses. NEUROLOGIC: Grossly nonfocal. The patient is walking in the room with her walker with mild shortness of breath. EKG was reviewed and showed atrial fibrillation with rapid ventricular response and nonspecific STT changes. Telemetry shows atrial fibrillation with increased ventricular response. LABS Hemoglobin 11.9, potassium 4.7, creatinine 0.8, AST and ALT normal. BMP 23. DIAGNOSIS 1. Atrial fibrillation with rapid ventricular response. 2. High INR 3. History of TIA/CVA. 4. Hypertension 5. Diabetes mellitus 6. Chronic diastolic congestive heart failure DISPOSITION Ms. Dee will be monitored on telemetry. She was started on IV Diltiazem for rate control. Her INR is now normalized and we will start Xarelto 20 mg today. Her Diltiazem can be switched to PO and if necessary, metoprolol can be added for rate control. I recommend to continue aggressive modification of her cardiac risk factors including hypertension, diabetes mellitus and dyslipidemia. I recommend to increase patient's activity. Dr. Baron, her primary filling separator, will follow her as outpatient. MD MARIA LUZ Ames/JAMI /10:54 AM /11:35 AM MTDD
[2016-12-26] MEDS ORDERED: SODIUM CHLOR 0.9% 1000 ML INJ 1,000 ML IV ONE (12:00)
[2016-12-26] MEDS ORDERED: DILTIAZEM HCL 25 MG/5 ML VIAL IV ONE (12:00)
--- NOTE | 2016-12-26 12:01 | EC ---
Study Study Date:12/26/2016 STUDY CONCLUSIONS SUMMARY - Procedure narrative: Transthoracic echocardiography. Image quality was poor. Scanning was performed from the parasternal, apical, and subcostal acoustic windows. - Left ventricle: The cavity size was normal. Wall thickness was normal. Systolic function was vigorous. The estimated ejection fraction was in the range of 65% to 70%. Although no diagnostic regional wall motion abnormality was identified, this possibility cannot be completely excluded on the basis of this study. - Right atrium: Pacer wire or catheter noted in right atrium. - Tricuspid valve: Trace regurgitation. If LV function is below 40, please consider prescribing an ACEI or ARB or document rationale for non-use. PROCEDURE DATA STUDY STATUS: Elective. Procedure: Transthoracic echocardiography. Image quality was poor. Scanning was performed from the parasternal, apical, and subcostal acoustic windows. Study completion: The patient tolerated the procedure well. Transthoracic echocardiography. M-mode, complete 2D, complete spectral Doppler, and color Doppler. Height: Height: 66in. Weight: Weight: 187.6lb. Body mass index: BMI: 30.3kg/m^2. Body surface area: BSA: 1.95m^2. Patient status: Inpatient. CARDIAC ANATOMY LEFT VENTRICLE: The cavity size was normal. Wall thickness was normal. Systolic function was vigorous. The estimated ejection fraction was in the range of 65% to 70%. Although no diagnostic regional wall motion abnormality was identified, this possibility cannot be completely excluded on the basis of this study. AORTIC VALVE: Trileaflet; normal thickness leaflets. Doppler: Transvalvular velocity was within the normal range. There was no stenosis. No regurgitation. AORTA: Aortic root: The aortic root was normal in size. MITRAL VALVE: Structurally normal valve. Doppler: Transvalvular velocity was within the normal range. There was no evidence for stenosis. No regurgitation. LEFT ATRIUM: The atrium was normal in size. RIGHT VENTRICLE: The cavity size was normal. Wall thickness was normal. PULMONIC VALVE: Doppler: Transvalvular velocity was within the normal range. There was no evidence for stenosis. No regurgitation. TRICUSPID VALVE: Structurally normal valve. Doppler: Transvalvular velocity was within the normal range. Trace regurgitation. PULMONARY ARTERY: The main pulmonary artery was normal-sized. Systolic pressure was within the normal range. RIGHT ATRIUM: The atrium was normal in size. Pacer wire or catheter noted in right atrium. PERICARDIUM: There was no pericardial effusion. SYSTEMIC VEINS: Inferior vena cava: The vessel was normal in size. Patient weight: 187.6lb _Ejection fraction:_ 65-75% _Fractional shortening:_ 32% up to 5Kg 5-11.5Kg 11.6-22.9Kg 23-45Kg 45-57Kg Aortic Root 7-13 <17 13-22 17-27 17-27 LA diam 6-13 <23 24-38 33-47 37-40 RVID 10-17 7-15 7-15 7-18 8-17 LVIDd 12-22 <32 24-38 33-47 37-40 LVPW 2-4 3-6 5-7 6-8 7-8 IVS 2-4 3-6 5-7 6-8 7-8 BASIC MEASUREMENTS ADULT Normal Left ventricle LV internal dimension, ED, chordal level, *39 mm 43-52 PLAX LV internal dimension, ES, chordal level, 28.5 mm 23-38 PLAX Fractional shortening, chordal level, PLAX *27 % >29 LV posterior wall thickness, ED 6.03 mm IVS/LVPW ratio, ED *1.47 <1.3 Ventricular septum Septal thickness, ED 8.87 mm Aortic valve Leaflet separation 20 mm 15-26 Left atrium Anterior-posterior dimension 33 mm Anterior-posterior dimension index 1.69 cm/m^2 <2.2 Right ventricle RV internal dimension, ED, PLAX 20.1 mm 19-38 BASIC MEASUREMENTS ADULT Normal Aortic valve Leaflet separation 20 mm 15-26 Aorta Root diameter, ED 30 mm 20-37 DOPPLER MEASUREMENTS ADULT Normal Mitral valve Peak E-wave velocity 59.7 cm/s Tricuspid valve Regurgitant peak velocity 281 cm/s Peak RV-RA gradient, S 32 mm Hg Maximal regurgitant velocity 281 cm/s LEGEND: Mean values are shown as u=mean value. Asterisk (*) salazar values outside specified normal range. Prepared and signed by Mariusz Mack [id number]
[2016-12-26] MEDS ORDERED: DIGOXIN 0.5 MG/2 ML VIAL IV PUSH ONE (13:00)
[2016-12-26] MEDS ORDERED: SODIUM CHLORID 0.9% 500 ML INJ 500 ML IV ONE (13:00)
--- NOTE | 2016-12-26 14:07 | HHI.FF ---
Face to Face Verification Diagnosis: (1) Urinary tract infection (2) Diabetes (3) Hypertension (4) Supratherapeutic INR (5) Atrial fibrillation Physical Therapy Order: Evaluate and Treat, Improve ambulation, Strength and gait training Home Health Nursing Order: Nursing assessment with vital signs Home Health Aide Order: To Assist In: Bathing and personal care I have seen patient Christen Dee on 12/26/16. My clinical findings support the need for the requested home health care services because: Ltd mobility - disease progression Deconditioned w/ increased weakness Impaired cognition/judgement High risk of falls I certify that my clinical findings support that this patient is homebound because: Impaired cognitive ability/safety Unsteady gait/balance [place] December 26, 2016 14:07
[2016-12-26] MEDS ORDERED: AMIODARONE 150 MG/D5W 97 ML BOLUS 60 MINUTES IV ONE ×2 (16:00)
[2016-12-26] MEDS: RIVAROXABAN 20 MG TAB PO SCH (16:24)
[2016-12-26] MEDS: cefTRIAXone INJ 2,000 MG in SODIUM CHLORIDE 0.9% INJ 100 ML IV SCH (16:25)
[2016-12-26] MEDS: AMIODARONE INJ 450 MG in D5W (EXCEL BAG) 241 ML IV SCH (18:01)
[2016-12-26] MEDS: MONTELUKAST SODIUM 10 MG TAB PO SCH (21:59)
[2016-12-27] VITALS (7 sets, daily range): BP systolic 110–140; BP diastolic 50–77; PULSE 20–113; RESP 18–20; TEMP 97–98.2; O2SAT 94–97
[2016-12-27] MEDS: PHENAZOPYRIDINE HCL 100 MG TAB PO SCH ×3 (05:15→21:55)
[2016-12-27] MEDS: INSULIN ASPART SUPPLEMENTAL SCALE SQ SCH ×4 (05:25→22:01)
[2016-12-27] MEDS: PRAVASTATIN SOD 10 MG TAB PO SCH (10:06)
[2016-12-27] MEDS: DIGOXIN 0.25 MG TAB PO SCH (10:07)
[2016-12-27] MEDS: SODIUM CHLORIDE 0.9% FLUSH 10 ML FLUSH IV FLUSH SCH ×2 (10:08→21:00)
[2016-12-27] MEDS: DOCUSATE SODIUM 50 MG/SENNA 8.6 MG TAB PO SCH ×2 (10:08→21:00)
[2016-12-27] MEDS: ACETAMINOPHEN 325 MG TAB PO PRN ×2 (10:13→18:05)
--- NOTE | 2016-12-27 10:50 | HHI.PR ---
Subjective Remarks awake Sitting on side of bed eating breakfast Mild exertional SOB noted UTI Amiodarone drip for A. fib uncontrolled, 113 this a.m. ([place]) Objective Objective Results - Vital Signs Date Time Temp Pulse Resp B/P Pulse Ox O2 Delivery O2 Flow Rate FiO2 12/27/16 08:00 97.0 20 20 124/77 95 12/27/16 04:00 97.9 113 18 130/52 97 12/27/16 00:00 97.4 106 18 110/50 96 12/26/16 20:00 104 12/26/16 20:00 97.2 106 20 120/62 93 12/26/16 17:45 122 108/72 12/26/16 17:30 104 102/60 12/26/16 17:30 120 98/58 12/26/16 17:15 121 92/58 12/26/16 17:00 130 102/58 Automatic Cuff 12/26/16 16:00 97.4 96 20 115/58 95 12/26/16 13:44 125 102/60 12/26/16 12:05 125 82/50 12/26/16 11:01 97.2 131 20 99/59 96 12/26/16 10:45 150 I/O 12/26/16 12/26/16 12/26/16 12/27/16 12/27/16 12/27/16 07:00 15:00 23:00 07:00 15:00 23:00 Intake Total 240 ml 800 ml Output Total 500 ml 700 ml Balance -260 ml 800 ml -700 ml Intake Oral 240 ml IV Total 800 ml Output Urine Total 500 ml 700 ml # Voids 2 4 # Bowel Movements 2 0 0 ([place]) Result Diagram: 12/26/16 0610 12/26/16 0610 ROS General: Fatigue, Weakness, Other (10 point ROS done positives noted other systems unremarkable) Cardiac: Other (tachycardia with A. fib) Pulmonary: Cough (occasional), SOB (mild) /[employer] CONSULTANT: Urgency Neuro/MS: Other (anxiety mild) ([place]) Physical Exam Physical Exam PHYSICAL EXAMINATION GENERAL: This is a obese elderly female who appears to have some shortness of breath . She is alert and awake HEAD: Normocephalic without any lesion or mass noted. Facial features appear symmetric. OROPHARYNGEAL: Oropharynx without erythema or edema. NECK: Supple. No nuchal rigidity or lymphadenopathy. Trachea midline without deviation. CARDIAC: Irregular rhythm, some tachycardia still at 113 this a.m. A. fib LUNGS: Diminished to auscultation bilaterally. Some mild rhonchi ABDOMEN: Obese, Soft, nontender, no organomegaly or masses. Bowel sounds are heard in all four quadrants. EXTREMITIES: Trace edema. Pulses intact NEUROLOGICAL: Patient mood and affect appropriate with some mild anxiety. Speech is clear SKIN:Warm and moist Objective Remarks I'm doing okay I guess ([place]) A/P Assessment and Plan Assessment/Plan (1) Urinary tract infection (2) Diabetes (3) Hypertension (4) Supratherapeutic INR (5) Atrial fibrillation (6) History of CVA (cerebrovascular accident) (7) Diarrhea hx 76-year-old presented to emergency room with multiple complaints, diarrhea, supratherapeutic INR, mild shortness of breath, dysuria -Continue with antibiotics, follow urine cultures On 526 patient went into A. fib with rapid rate, it be placed on Cardizem drip Now continues on amiodarone drip Cardiology consult appreciate his input and orders, telemetry shows A. fib heart rate around 113 still having some rapid ventricular response. Recommendation is to go back on by mouth Cardizem today. She has been placed on Xarelto 2D echo done, EF 65-70%, trace of tricuspid regurg noted Mild tachypnea respirations with increased activity and sitting on side of the bed while eating. O2 therapy Encourage patient to sit up in chair today, physical therapy evelie Type 2 diabetes, uncontrolled, 186 this morning Continue with Accu-Cheks before meals and at bedtime Hypertension, hypertensive control, I'll signs reviewed normal trends for now home medications Physical therapy for evaluation and treatment for safety and mobility darryn D/W Dr. Lynch, seen on her behalf Discussed with patient Discussed with nurse ([place]) Assessment and Plan patient seen and examined Heart rate controlled on Amiodarone gt, po cardizem and po dig on Xarelto in sinus rhythm hopefully transition to po Amio in am plan of care discussed with nursing staff and Spring [employer] CLE[employer]ER no family at bedside continue current care (Alicia Lynch MD) [place] December 27, 2016 10:50 Alicia Lynch MD December 27, 2016 16:19
--- NOTE | 2016-12-27 12:54 | PD.CARD.PN ---
Subjective Subjective Remarks Awake, alert. Did not sleep well last night, but doing better this morning. Objective Medications Current Medications Medications (Trade) Dose Ordered Sig/Tulio Route Start Time Stop Time Status Last Admin (NS Flush) 2 ml UNSCH PRN IV FLUSH 12/24/16 17:30 (NS Flush) 2 ml BID IV FLUSH 12/24/16 21:00 12/27/16 10:08 (Narcan Inj) 0.4 mg UNSCH PRN IV 12/24/16 17:30 (Tiffany-Colace) 1 tab BID PO 12/24/16 21:00 12/27/16 10:08 (Milk Of Magnesia Liq) 30 ml Q12H PRN PO 12/24/16 17:30 (Senokot) 17.2 mg Q12H PRN PO 12/24/16 17:30 (Dulcolax Supp) 10 mg DAILY PRN RECTAL 12/24/16 17:30 (Lactulose Liq) 30 ml DAILY PRN PO 12/24/16 17:30 (Singulair) 10 mg HS PO 12/24/16 21:00 12/26/16 21:59 (Prinivil) 20 mg BID PO 12/24/16 21:00 Hold 12/25/16 08:42 (Pravachol) 10 mg DAILY PO 12/25/16 09:00 12/27/16 10:06 (D50w (Vial) Inj) 50 ml UNSCH PRN IV 12/24/16 18:45 Glucagon 1 mg 1 mg UNSCH PRN OTHER 12/24/16 18:45 (Rocephin Inj/NS Inj) 100 ml @ 200 mls/hr Q24H IV 12/25/16 17:00 12/26/16 16:25 (Xarelto) 20 mg Q24H PO 12/26/16 17:00 12/26/16 16:24 (Pyridium) 100 mg Q8HR PO 12/26/16 09:00 12/27/16 05:15 Acetaminophen 650 mg 650 mg Q4H PRN PO 12/26/16 08:30 12/27/16 10:13 (Cardizem Inj/NS Inj) 125 ml @ 0 mls/hr TITRATE IV 12/26/16 10:15 12/26/16 11:49 Digoxin 0.25 mg 0.25 mg DAILY PO 12/27/16 09:00 12/27/16 10:07 (Cordarone Inj/ D5W ([place]) Inj) 250 ml @ 0 mls/hr CONTINUOUS IV 12/26/16 16:00 12/26/16 18:01 Vital Signs / I&O Vital Signs Date Time Temp Pulse Resp B/P Pulse Ox O2 Delivery O2 Flow Rate FiO2 12/27/16 08:00 97.0 20 20 124/77 95 12/27/16 04:00 97.9 113 18 130/52 97 12/27/16 00:00 97.4 106 18 110/50 96 12/26/16 20:00 104 12/26/16 20:00 97.2 106 20 120/62 93 12/26/16 17:45 122 108/72 12/26/16 17:30 104 102/60 12/26/16 17:30 120 98/58 12/26/16 17:15 121 92/58 12/26/16 17:00 130 102/58 Automatic Cuff 12/26/16 16:00 97.4 96 20 115/58 95 12/26/16 13:44 125 102/60 I/O 12/26/16 12/26/16 12/26/16 12/27/16 12/27/16 12/27/16 07:00 15:00 23:00 07:00 15:00 23:00 Intake Total 240 ml 800 ml Output Total 500 ml 700 ml Balance -260 ml 800 ml -700 ml Intake Oral 240 ml IV Total 800 ml Output Urine Total 500 ml 700 ml # Voids 2 4 # Bowel Movements 2 0 0 Physical Exam GENERAL: Awake, alert. SKIN: Warm and dry. HEAD: Atraumatic. Normocephalic. EYES: Pupils equal and round. No scleral icterus. No injection or drainage. ENT: No nasal bleeding or discharge. Mucous membranes pink and moist. NECK: Trachea midline. No JVD. CARDIOVASCULAR: Regular rate and rhythm. No murmurs, rubs or gallops. RESPIRATORY: No accessory muscle use. Clear to auscultation. Breath sounds equal bilaterally. GASTROINTESTINAL: Abdomen soft, non-tender, nondistended. MUSCULOSKELETAL: Extremities without clubbing, cyanosis, or edema. No obvious deformities. NEUROLOGICAL: Awake and alert. No obvious cranial nerve deficits. Motor grossly within normal limits. Normal speech. PSYCHIATRIC: Appropriate mood and affect; insight and judgment normal. Laboratory Laboratory Tests Test 12/25/16 12/26/16 14:57 06:10 Prothrombin Time 15.1 SEC 19.2 SEC Prothromb Time International 1.3 RATIO 1.7 RATIO Ratio White Blood Count 6.4 TH/MM3 Red Blood Count 4.50 MIL/MM3 Hemoglobin 11.9 GM/DL Hematocrit 36.4 % Mean Corpuscular Volume 81.0 FL Mean Corpuscular Hemoglobin 26.4 PG Mean Corpuscular Hemoglobin 32.6 % Concent Red Cell Distribution Width 15.2 % Platelet Count 250 TH/MM3 Mean Platelet Volume 8.3 FL Sodium Level 135 MEQ/L Potassium Level 4.7 MEQ/L Chloride Level 104 MEQ/L Carbon Dioxide Level 20.4 MEQ/L Anion Gap 11 MEQ/L Blood Urea Nitrogen 17 MG/DL Creatinine 0.80 MG/DL Estimat Glomerular Filtration 69 ML/MIN Rate Random Glucose 186 MG/DL Calcium Level 8.8 MG/DL Assessment and Plan Problem List: (1) Atrial fibrillation (2) Hypertension (3) Supratherapeutic INR (4) Diabetes (5) History of CVA (cerebrovascular accident) Assessment and Plan Currently in sinus rhythm. Continue po Cardizem, digoxin. INR has normalized. She is anticoagulated with Xarelto. Continue to monitor. Code Status full Discussed Condition With Dr. Giles Problem Qualifiers (1) Atrial fibrillation: Qualified Code: I48.0 - Paroxysmal atrial fibrillation (2) Hypertension: Qualified Code: I10 - Essential hypertension (3) Diabetes: Harika Garcia December 27, 2016 12:54
[2016-12-27] MEDS: DILTIAZEM-CD 240 MG CAP ER PO SCH (14:48)
[2016-12-27] MEDS: DILTIAZEM-CD 120 MG CAP ER PO SCH (14:48)
--- NOTE | 2016-12-27 16:30 | EKG ---
Date Performed: 12/26/2016 Time Performed: 09:45:42 PTAGE: 76 years EKG: ATRIAL FIBRILLATION WITH RAPID VENTRICULAR RESPONSE NONSPECIFIC ST & T-WAVE ABNORMALITY ABN ORMAL RHYTHM ECG Since PREVIOUS TRACING 09/12/2015, there is a rhythm change from Sinus rhythm to atrial fibrillation. ST-T changes are about the same. PREVIOUS TRACIN09/12/2015 12.15 DOCTOR: Santi Angeles Interpretating Date/Time 12/27/2016 16:29:32
[2016-12-27] MEDS: RIVAROXABAN 20 MG TAB PO SCH (17:00)
[2016-12-27] MEDS: cefTRIAXone INJ 2,000 MG in SODIUM CHLORIDE 0.9% INJ 100 ML IV SCH (17:51)
[2016-12-27] MEDS: MONTELUKAST SODIUM 10 MG TAB PO SCH (21:58)
[2016-12-27] MEDS: AMIODARONE INJ 450 MG in D5W (EXCEL BAG) 241 ML IV SCH (22:38)
[2016-12-28] VITALS (8 sets, daily range): BP systolic 110–152; BP diastolic 59–81; PULSE 62–160; RESP 18–20; TEMP 97.1–98.8; O2SAT 92–96
[2016-12-28] MEDS: PHENAZOPYRIDINE HCL 100 MG TAB PO SCH ×3 (05:06→22:48)
[2016-12-28] MEDS: INSULIN ASPART SUPPLEMENTAL SCALE SQ SCH ×4 (06:06→22:58)
[2016-12-28] MEDS: DIGOXIN 0.25 MG TAB PO SCH (08:57)
[2016-12-28] MEDS: DOCUSATE SODIUM 50 MG/SENNA 8.6 MG TAB PO SCH ×2 (08:57→21:00)
[2016-12-28] MEDS: PRAVASTATIN SOD 10 MG TAB PO SCH (08:57)
[2016-12-28] MEDS: DILTIAZEM-CD 240 MG CAP ER PO SCH (08:57)
[2016-12-28] MEDS: SODIUM CHLORIDE 0.9% FLUSH 10 ML FLUSH IV FLUSH SCH ×2 (08:57→22:47)
[2016-12-28] MEDS: DILTIAZEM-CD 120 MG CAP ER PO SCH (08:57)
--- NOTE | 2016-12-28 09:52 | PD.CARD.PN ---
Subjective Subjective Remarks Sitting up at bedside. Feeling better, wanting to go home. Denies any chest pain or palpitations. Objective Medications Current Medications Medications (Trade) Dose Ordered Sig/Tulio Route Start Time Stop Time Status Last Admin (NS Flush) 2 ml UNSCH PRN IV FLUSH 12/24/16 17:30 (NS Flush) 2 ml BID IV FLUSH 12/24/16 21:00 12/28/16 08:57 (Narcan Inj) 0.4 mg UNSCH PRN IV 12/24/16 17:30 (Tiffany-Colace) 1 tab BID PO 12/24/16 21:00 12/28/16 08:57 (Milk Of Magnesia Liq) 30 ml Q12H PRN PO 12/24/16 17:30 (Senokot) 17.2 mg Q12H PRN PO 12/24/16 17:30 (Dulcolax Supp) 10 mg DAILY PRN RECTAL 12/24/16 17:30 (Lactulose Liq) 30 ml DAILY PRN PO 12/24/16 17:30 (Singulair) 10 mg HS PO 12/24/16 21:00 12/27/16 21:58 (Prinivil) 20 mg BID PO 12/24/16 21:00 Hold 12/25/16 08:42 (Pravachol) 10 mg DAILY PO 12/25/16 09:00 12/28/16 08:57 (D50w (Vial) Inj) 50 ml UNSCH PRN IV 12/24/16 18:45 Glucagon 1 mg 1 mg UNSCH PRN OTHER 12/24/16 18:45 (Rocephin Inj/NS Inj) 100 ml @ 200 mls/hr Q24H IV 12/25/16 17:00 12/27/16 17:51 (Xarelto) 20 mg Q24H PO 12/26/16 17:00 12/27/16 17:00 (Pyridium) 100 mg Q8HR PO 12/26/16 09:00 12/28/16 05:06 Acetaminophen 650 mg 650 mg Q4H PRN PO 12/26/16 08:30 12/27/16 18:05 (Cardizem Inj/NS Inj) 125 ml @ 0 mls/hr TITRATE IV 12/26/16 10:15 12/26/16 11:49 Digoxin 0.25 mg 0.25 mg DAILY PO 12/27/16 09:00 12/28/16 08:57 (Cordarone Inj/ D5W ([place]) Inj) 250 ml @ 0 mls/hr CONTINUOUS IV 12/26/16 16:00 12/27/16 22:38 (Cardizem Cd) 120 mg DAILY PO 12/27/16 13:00 12/28/16 08:57 (Cardizem Cd) 240 mg DAILY PO 12/27/16 13:00 12/28/16 08:57 Vital Signs / I&O Vital Signs Date Time Temp Pulse Resp B/P Pulse Ox O2 Delivery O2 Flow Rate FiO2 12/28/16 09:36 Nasal Cannula 2.00 12/28/16 06:58 97.5 73 18 148/67 96 12/28/16 04:00 98.8 82 20 117/81 96 12/28/16 00:00 98.3 62 18 110/59 94 12/27/16 21:44 68 12/27/16 21:44 Nasal Cannula 2.00 12/27/16 20:00 98.2 64 20 118/58 94 118/58 12/27/16 16:00 97.2 68 20 132/56 96 12/27/16 12:00 97.6 73 20 140/65 95 I/O 12/27/16 12/27/16 12/27/16 12/28/16 12/28/16 12/28/16 07:00 15:00 23:00 07:00 15:00 23:00 Intake Total 676 ml 110 ml 110 ml Output Total 700 ml 600 ml Balance -700 ml 76 ml 110 ml 110 ml Intake Oral 600 ml IV Total 76 ml 110 ml 110 ml Output Urine Total 700 ml 600 ml # Voids 5 # Bowel Movements 0 1 5 Physical Exam GENERAL: Awake, alert. SKIN: Warm and dry. HEAD: Atraumatic. Normocephalic. EYES: Pupils equal and round. No scleral icterus. No injection or drainage. ENT: No nasal bleeding or discharge. Mucous membranes pink and moist. NECK: Trachea midline. No JVD. CARDIOVASCULAR: Regular rate and rhythm. No murmurs, rubs or gallops. RESPIRATORY: No accessory muscle use. Clear to auscultation. Breath sounds equal bilaterally. GASTROINTESTINAL: Abdomen soft, non-tender, nondistended. MUSCULOSKELETAL: Extremities without clubbing, cyanosis, or edema. No obvious deformities. NEUROLOGICAL: Awake and alert. No obvious cranial nerve deficits. Motor grossly within normal limits. Normal speech. PSYCHIATRIC: Appropriate mood and affect; insight and judgment normal. Laboratory Laboratory Tests Test 12/24/16 12/24/16 12/24/16 12/25/16 14:15 14:50 16:10 04:07 Total Bilirubin 0.2 MG/DL Aspartate Amino Transf 31 U/L (AST/SGOT) Alanine Aminotransferase 35 U/L (ALT/SGPT) Alkaline Phosphatase 118 U/L B-Type Natriuretic Peptide 23 PG/ML Total Protein 7.4 GM/DL Albumin 2.9 GM/DL Blood Type A POSITIVE Antibody Screen NEGATIVE Blood Bank Comment Urine Color YELLOW Urine Turbidity CLOUDY Urine pH 6.0 Urine Specific [place] 1.023 Urine Protein 30 mg/dL Urine Glucose (UA) 1000 mg/dL Urine Ketones 10 mg/dL Urine Occult Blood LARGE Urine Nitrite NEG Urine Bilirubin NEG Urine Urobilinogen LESS THAN 2.0 MG/DL Urine Leukocyte Esterase LARGE Urine RBC /hpf Urine WBC /hpf Urine WBC Clumps OCC Urine Bacteria FEW /hpf Microscopic Urinalysis Comment CULTURE INDICATED Activated Partial 109.5 SEC Thromboplast Time Neutrophils (%) (Auto) 65.4 % Lymphocytes (%) (Auto) 18.2 % Monocytes (%) (Auto) 14.7 % Eosinophils (%) (Auto) 1.0 % Basophils (%) (Auto) 0.7 % Neutrophils # (Auto) 4.1 TH/MM3 Lymphocytes # (Auto) 1.1 TH/MM3 Monocytes # (Auto) 0.9 TH/MM3 Eosinophils # (Auto) 0.1 TH/MM3 Basophils # (Auto) 0.0 TH/MM3 CBC Comment DIFF FINAL Differential Comment Test 12/25/16 12/26/16 12:20 06:10 Stool C. difficile Toxin (PCR) NEGATIVE Stl C. difficile Toxin PRESUMPTIVE Epiderm 027 NEGATIVE White Blood Count 6.4 TH/MM3 Red Blood Count 4.50 MIL/MM3 Hemoglobin 11.9 GM/DL Hematocrit 36.4 % Mean Corpuscular Volume 81.0 FL Mean Corpuscular Hemoglobin 26.4 PG Mean Corpuscular Hemoglobin 32.6 % Concent Red Cell Distribution Width 15.2 % Platelet Count 250 TH/MM3 Mean Platelet Volume 8.3 FL Prothrombin Time 19.2 SEC Prothromb Time International 1.7 RATIO Ratio Sodium Level 135 MEQ/L Potassium Level 4.7 MEQ/L Chloride Level 104 MEQ/L Carbon Dioxide Level 20.4 MEQ/L Anion Gap 11 MEQ/L Blood Urea Nitrogen 17 MG/DL Creatinine 0.80 MG/DL Estimat Glomerular Filtration 69 ML/MIN Rate Random Glucose 186 MG/DL Calcium Level 8.8 MG/DL Assessment and Plan Problem List: (1) Atrial fibrillation (2) Hypertension (3) Supratherapeutic INR (4) Diabetes (5) History of CVA (cerebrovascular accident) Assessment and Plan Continues in sinus rhythm. Continue po Cardizem, digoxin. INR has normalized. She is anticoagulated with Xarelto. Continue to monitor. Code Status full Discussed Condition With Dr. Giles and RN Problem Qualifiers (1) Atrial fibrillation: Qualified Code: I48.0 - Paroxysmal atrial fibrillation (2) Hypertension: Qualified Code: I10 - Essential hypertension (3) Diabetes: Harika Garcia December 28, 2016 09:51
[2016-12-28] MEDS ORDERED: Cefuroxime PO (14:07)
[2016-12-28] MEDS ORDERED: XARE20TA PO (14:07)
[2016-12-28] MEDS ORDERED: DILT360C12 PO (14:07)
--- NOTE | 2016-12-28 14:08 | HHI.DCPOC ---
Discharge Care Plan Diagnosis: (1) Urinary tract infection (2) Diabetes (3) Hypertension (4) Supratherapeutic INR (5) At risk for bleeding associated with anticoagulants (6) Atrial fibrillation (7) History of CVA (cerebrovascular accident) (8) Diarrhea Your Health Problems Are: Bleeding Tendency Urinary Difficulties Goals to Promote Your Health * To prevent worsening of your condition and complications * To maintain your health at the optimal level Directions to Meet Your Goals Take your medications as prescribed Follow your dietary instruction Follow activity as directed Keep your appointments as scheduled Take your immunizations and boosters as scheduled If your symptoms worsen call your PCP, if no PCP go to Urgent Care Center or Emergency Room Smoking is Dangerous to Your Health. Avoid second hand smoke Call the 24-hour hour crisis hotline for domestic abuse at Jagruti Kyle [facility] December 28, 2016 14:08
--- NOTE | 2016-12-28 14:10 | HHI.PR ---
Subjective Subjective Remarks sleepy today no cp no sob some dysuria eating okay no fever tele reviewed, SR, HR 60s off Amiodarone drip Review of Systems Constitutional Constitutional Remarks 12 point ROS completed, negative except as noted above Vitals/Results Intake & Output 12/27/16 12/27/16 12/28/16 15:00 23:00 07:00 Intake Total 676 ml 110 ml 110 ml Output Total 600 ml Balance 76 ml 110 ml 110 ml Intake Oral 600 ml IV Total 76 ml 110 ml 110 ml Output Urine Total 600 ml # Voids 5 # Bowel Movements 1 5 Vital Signs Vital Signs Date Time Temp Pulse Resp B/P Pulse Ox O2 Delivery O2 Flow Rate FiO2 12/28/16 12:40 97.6 73 18 134/62 96 12/28/16 09:36 Nasal Cannula 2.00 12/28/16 06:58 97.5 73 18 148/67 96 12/28/16 04:00 98.8 82 20 117/81 96 12/28/16 00:00 98.3 62 18 110/59 94 12/27/16 21:44 68 12/27/16 21:44 Nasal Cannula 2.00 12/27/16 20:00 98.2 64 20 118/58 94 118/58 12/27/16 16:00 97.2 68 20 132/56 96 CBC/BMP: 12/26/16 0610 12/26/16 0610 Physical Exam General General Appearance: Well Developed, Well Nourished, No Acute Distress, Comfortable Eyes Eye Exam: Pupils Equal, Pupils Reactive Ears & Nose Ears & Nose Exam: Nasal Mucosa [place] Throat Throat Exam: Oral Mucosa [place] & Moist Neck Neck Exam: Neck Supple, Trachea Midline Pulmonary Resp Exam: Clear Bilaterally, No Distress Cardiology CV Exam: Good Perfusion Gastrointestinal/Abdomen GI Exam: Soft, Non-Tender, Bowel Sounds Present, Non-Distended Musculoskeletal MS Exam: Joints Intact Integumentary Skin Exam: Warm, Intact Extremeties Extremities Exam: Pedal Pulses Palpable, Trace Edema Neurologic Neuro Exam: Alert, Awake, Oriented, Speech Clear, Moving All Extremities, No Focal Deficits Psychiatric Psych Exam: Appropriate Responses VTE Prophylaxis VTE Remarks Xarelto Assessment/Plan Problem List: (1) Urinary tract infection (2) Diabetes (3) Hypertension (4) Supratherapeutic INR (5) Atrial fibrillation (6) History of CVA (cerebrovascular accident) (7) Diarrhea Assessment/Plan 76-year-old presented to emergency room with multiple complaints, diarrhea, supratherapeutic INR, mild shortness of breath, dysuria -On Rocephin, UC + ecoli -DC Rocephin, start Ceftin 250 mg PO BID Type 2 diabetes, blood glucose uncontrolled, up to 300s Continue with Accu-Cheks before meals and at bedtime -Add Lantus 10 units SQ q HS -Resume Metformin Chronic A. fib went into afib with RVR, put on Amiodarone -card input appreciated -HR improved, back to SR, 60s -restarted on Cardizem 360 mg PO daily Continue with Xarelto Diarrhea, now resolving We'll check stools for C. difficile Hyperkalemia, potassium 4.7 -will resume Lisinopril Supratherapeutic INR, INR 1.7 Attending discussed with patient's cardiology, patient started on Xarelto for improve compliance. Hypertension, hypertensive control Continue home medications Continue when necessary medication Continue with home medications Physical therapy for evaluation and treatment Labs in am Case management consultation for DC planning, possibly home today Pt. doesn't want SNF Poss dc today or tomorrow F/U cardiology 1-2 weeks F/U PCP 1 week Diet-heart healthy Activity-as tolerated Discussed with patient Discussed with Dr. Lynch Discussed with RN This patient was seen by myself and Dr. Lynch, this note is written on her behalf Problem Qualifiers (1) Urinary tract infection: Qualified Code: N30.01 - Acute cystitis with hematuria (2) Diabetes: (3) Hypertension: Qualified Code: I10 - Essential hypertension (4) Atrial fibrillation: Qualified Code: I48.0 - Paroxysmal atrial fibrillation Jagruti Kyle December 28, 2016 14:10
[2016-12-28] MEDS ORDERED: DIGO0.25 PO (15:16)
[2016-12-28] MEDS: RIVAROXABAN 20 MG TAB PO SCH (17:00)
[2016-12-28] MEDS: metFORMIN HCL 500 MG TAB PO SCH (17:04)
[2016-12-28] MEDS ORDERED: AMIODARONE INJ 450 MG in D5W (EXCEL BAG) 241 ML IV SCH (22:15)
[2016-12-28] MEDS: CEFUROXIME AXETIL 250 MG TAB PO SCH (22:47)
[2016-12-28] MEDS: MONTELUKAST SODIUM 10 MG TAB PO SCH (22:48)
[2016-12-28] MEDS: LISINOPRIL 20 MG TAB PO SCH (22:49)
[2016-12-28] MEDS: INSULIN DETEMIR 100 UNITS/ML VIAL SQ SCH (22:56)
[2016-12-29] VITALS (7 sets, daily range): BP systolic 90–135; BP diastolic 50–60; PULSE 63–133; RESP 18–20; TEMP 97–97.7; O2SAT 92–100
[2016-12-29] MEDS: PHENAZOPYRIDINE HCL 100 MG TAB PO SCH ×3 (04:57→20:55)
[2016-12-29] MEDS: INSULIN ASPART SUPPLEMENTAL SCALE SQ SCH ×4 (06:08→20:54)
[2016-12-29 08:17] LABS: HEMATOCRIT 38.2 % (35.0-46.0); MEAN CELL VOLUME 80.9 FL (80.0-100.0); MEAN CORPUSCULAR HEMOGLOBIN 26.8 PG (27.0-34.0); MEAN CORPUSCULAR HGB CONC 33.1 % (32.0-36.0); PLATELET COUNT 273 TH/MM3 (150-450); RED BLOOD COUNT 4.72 MIL/MM3 (4.00-5.30); RED CELL DISTRIBUTION WIDTH 15.1 % (11.6-17.2); REVIEW FLAG FINAL; WHITE BLOOD COUNT 4.9 TH/MM3 (4.0-11.0)
[2016-12-29 08:48] LABS: BICARBONATE 23.5 MEQ/L (21.0-32.0); POTASSIUM 3.9 MEQ/L (3.5-5.1)
[2016-12-29] MEDS: DILTIAZEM-CD 120 MG CAP ER PO SCH (09:00)
[2016-12-29] MEDS: PRAVASTATIN SOD 10 MG TAB PO SCH (09:00)
[2016-12-29] MEDS: CEFUROXIME AXETIL 250 MG TAB PO SCH ×2 (09:00→20:45)
[2016-12-29] MEDS: DILTIAZEM-CD 240 MG CAP ER PO SCH (09:00)
[2016-12-29] MEDS: DOCUSATE SODIUM 50 MG/SENNA 8.6 MG TAB PO SCH ×2 (09:00→20:46)
[2016-12-29] MEDS: SODIUM CHLORIDE 0.9% FLUSH 10 ML FLUSH IV FLUSH SCH ×2 (09:00→20:46)
[2016-12-29] MEDS: DIGOXIN 0.25 MG TAB PO SCH (09:00)
[2016-12-29] MEDS: LISINOPRIL 20 MG TAB PO SCH ×2 (09:00→20:43)
[2016-12-29] MEDS: metFORMIN HCL 500 MG TAB PO SCH ×2 (09:00→17:04)
--- NOTE | 2016-12-29 11:32 | PD.CARD.PN ---
Subjective Subjective Remarks Resting in bed without distress. Denies any needs. Went back into Afib RVR last night. Now in SR. Objective Medications Current Medications Medications (Trade) Dose Ordered Sig/Tulio Route Start Time Stop Time Status Last Admin (NS Flush) 2 ml UNSCH PRN IV FLUSH 12/24/16 17:30 (NS Flush) 2 ml BID IV FLUSH 12/24/16 21:00 12/29/16 09:00 (Narcan Inj) 0.4 mg UNSCH PRN IV 12/24/16 17:30 (Tifafny-Colace) 1 tab BID PO 12/24/16 21:00 12/28/16 08:57 (Milk Of Magnesia Liq) 30 ml Q12H PRN PO 12/24/16 17:30 (Senokot) 17.2 mg Q12H PRN PO 12/24/16 17:30 (Dulcolax Supp) 10 mg DAILY PRN RECTAL 12/24/16 17:30 (Lactulose Liq) 30 ml DAILY PRN PO 12/24/16 17:30 (Singulair) 10 mg HS PO 12/24/16 21:00 12/28/16 22:48 (Prinivil) 20 mg BID PO 12/24/16 21:00 12/28/16 22:49 (Pravachol) 10 mg DAILY PO 12/25/16 09:00 12/29/16 09:00 (D50w (Vial) Inj) 50 ml UNSCH PRN IV 12/24/16 18:45 (Glucagon Inj) 1 mg UNSCH PRN OTHER 12/24/16 18:45 (Xarelto) 20 mg Q24H PO 12/26/16 17:00 12/28/16 17:00 (Pyridium) 100 mg Q8HR PO 12/26/16 09:00 12/29/16 04:57 (Tylenol) 650 mg Q4H PRN PO 12/26/16 08:30 12/27/16 18:05 (Lanoxin) 0.25 mg DAILY PO 12/27/16 09:00 12/29/16 09:00 (Cardizem Cd) 120 mg DAILY PO 12/27/16 13:00 12/29/16 09:00 (Cardizem Cd) 240 mg DAILY PO 12/27/16 13:00 12/29/16 09:00 (Ceftin) 250 mg Q12HR PO 12/28/16 21:00 12/29/16 09:00 (Levemir Inj) 10 units HS SQ 12/28/16 21:00 12/28/16 22:56 Metformin HCl 1000 mg 1,000 mg BIDPC PO 12/28/16 18:00 12/29/16 09:00 (Cordarone Inj/ D5W ([place]) Inj) 250 ml @ 0 mls/hr CONTINUOUS IV 12/28/16 22:15 12/28/16 22:47 Vital Signs / I&O Vital Signs Date Time Temp Pulse Resp B/P Pulse Ox O2 Delivery O2 Flow Rate FiO2 12/29/16 09:00 Nasal Cannula 2.00 12/29/16 09:00 67 109/57 12/29/16 08:00 97.0 66 18 90/60 94 12/29/16 05:28 97.4 88 20 130/50 94 12/29/16 00:35 97.6 133 20 120/58 95 12/28/16 22:35 160 12/28/16 22:00 Nasal Cannula 2.00 12/28/16 21:01 97.7 98 20 149/77 92 12/28/16 20:00 109 12/28/16 16:10 97.1 78 18 152/69 94 12/28/16 12:40 97.6 73 18 134/62 96 I/O 12/28/16 12/28/16 12/28/16 12/29/16 12/29/16 12/29/16 07:00 15:00 23:00 07:00 15:00 23:00 Intake Total 110 ml 722 ml 200 ml Output Total 1000 ml Balance 110 ml -278 ml 200 ml Intake Oral 720 ml IV Total 110 ml 2 ml 200 ml Output Urine Total 1000 ml Stool Total 0 ml # Voids 5 2 # Bowel Movements 5 1 1 Physical Exam GENERAL: Awake, alert. SKIN: Warm and dry. HEAD: Atraumatic. Normocephalic. EYES: Pupils equal and round. No scleral icterus. No injection or drainage. ENT: No nasal bleeding or discharge. Mucous membranes pink and moist. NECK: Trachea midline. No JVD. CARDIOVASCULAR: Regular rate and rhythm. No murmurs, rubs or gallops. RESPIRATORY: No accessory muscle use. Clear to auscultation. Breath sounds equal bilaterally. GASTROINTESTINAL: Abdomen soft, non-tender, nondistended. MUSCULOSKELETAL: Extremities without clubbing, cyanosis, or edema. No obvious deformities. NEUROLOGICAL: Awake and alert. No obvious cranial nerve deficits. Motor grossly within normal limits. Normal speech. PSYCHIATRIC: Appropriate mood and affect; insight and judgment normal. Laboratory Laboratory Tests Test 12/29/16 07:51 White Blood Count 4.9 TH/MM3 Red Blood Count 4.72 MIL/MM3 Hemoglobin 12.6 GM/DL Hematocrit 38.2 % Mean Corpuscular Volume 80.9 FL Mean Corpuscular Hemoglobin 26.8 PG Mean Corpuscular Hemoglobin 33.1 % Concent Red Cell Distribution Width 15.1 % Platelet Count 273 TH/MM3 Mean Platelet Volume 8.3 FL Sodium Level 137 MEQ/L Potassium Level 3.9 MEQ/L Chloride Level 104 MEQ/L Carbon Dioxide Level 23.5 MEQ/L Anion Gap 10 MEQ/L Blood Urea Nitrogen 11 MG/DL Creatinine 0.87 MG/DL Estimat Glomerular Filtration 63 ML/MIN Rate Random Glucose 228 MG/DL Calcium Level 9.2 MG/DL Assessment and Plan Problem List: (1) Atrial fibrillation (2) Hypertension (3) Supratherapeutic INR (4) Diabetes (5) History of CVA (cerebrovascular accident) Assessment and Plan Went back into Afib RVR last night. Amiodarone drip was restarted. Now in sinus rhythm. Will add po Amiodarone, wean off drip. Will check LFTs. Continue po Cardizem, digoxin. INR has normalized. She is anticoagulated with Xarelto. Continue to monitor. Dr. Menendez to follow tomorrow. Code Status Full Discussed Condition With Dr. Giles and RN Problem Qualifiers (1) Atrial fibrillation: Qualified Code: I48.0 - Paroxysmal atrial fibrillation (2) Hypertension: Qualified Code: I10 - Essential hypertension (3) Diabetes: Harika Garcia [facility] December 29, 2016 11:32
[2016-12-29] MEDS: AMIODARONE 200 MG TAB PO SCH ×2 (12:15→20:46)
[2016-12-29 13:00] LABS: INDIRECT BILIRUBIN 0.2 MG/DL (0.0-0.8); TOTAL BILIRUBIN ADULT 0.3 MG/DL (0.2-1.0)
--- NOTE | 2016-12-29 14:42 | HHI.PR ---
Subjective Subjective Remarks sitting up no cp no sob some dysuria went into afib with rvr last night on Amiodarone gtt again HR back to 60s, SR (Jagruti Kyle) Review of Systems Constitutional Constitutional Remarks 12 point ROS completed, negative except as noted above (Jagruti Kyle) Vitals/Results Intake & Output 12/28/16 12/28/16 12/29/16 15:00 23:00 07:00 Intake Total 722 ml 200 ml Output Total 1000 ml Balance -278 ml 200 ml Intake Oral 720 ml IV Total 2 ml 200 ml Output Urine Total 1000 ml Stool Total 0 ml # Voids 2 # Bowel Movements 1 1 Vital Signs Vital Signs Date Time Temp Pulse Resp B/P Pulse Ox O2 Delivery O2 Flow Rate FiO2 12/29/16 12:00 97.3 63 18 135/60 100 12/29/16 09:00 Nasal Cannula 2.00 12/29/16 09:00 67 109/57 12/29/16 08:00 97.0 66 18 90/60 94 12/29/16 05:28 97.4 88 20 130/50 94 12/29/16 00:35 97.6 133 20 120/58 95 12/28/16 22:35 160 12/28/16 22:00 Nasal Cannula 2.00 12/28/16 21:01 97.7 98 20 149/77 92 12/28/16 20:00 109 12/28/16 16:10 97.1 78 18 152/69 94 (Jagruti Kyle) CBC/BMP: 12/29/16 0751 12/29/16 0751 Lab Results Laboratory Tests Test 12/29/16 07:51 White Blood Count 4.9 TH/MM3 Red Blood Count 4.72 MIL/MM3 Hemoglobin 12.6 GM/DL Hematocrit 38.2 % Mean Corpuscular Volume 80.9 FL Mean Corpuscular Hemoglobin 26.8 PG Mean Corpuscular Hemoglobin 33.1 % Concent Red Cell Distribution Width 15.1 % Platelet Count 273 TH/MM3 Mean Platelet Volume 8.3 FL Sodium Level 137 MEQ/L Potassium Level 3.9 MEQ/L Chloride Level 104 MEQ/L Carbon Dioxide Level 23.5 MEQ/L Anion Gap 10 MEQ/L Blood Urea Nitrogen 11 MG/DL Creatinine 0.87 MG/DL Estimat Glomerular Filtration 63 ML/MIN Rate Random Glucose 228 MG/DL Calcium Level 9.2 MG/DL Total Bilirubin 0.3 MG/DL Direct Bilirubin 0.1 MG/DL Indirect Bilirubin 0.2 MG/DL Aspartate Amino Transf 31 U/L (AST/SGOT) Alanine Aminotransferase 57 U/L (ALT/SGPT) Alkaline Phosphatase 120 U/L Total Protein 6.6 GM/DL Albumin 2.7 GM/DL (Jagruti Kyle [employer]) Physical Exam General General Appearance: Well Developed, Well Nourished, No Acute Distress, Comfortable (Jagruti Kyle [employer]) Eyes Eye Exam: Pupils Equal, Pupils Reactive (Jagruti Kyle [employer]) Ears & Nose Ears & Nose Exam: Nasal Mucosa [place] (Jagruti Kyle [employer]) Throat Throat Exam: Oral Mucosa [place] & Moist (Jagruti Kyle [employer]) Neck Neck Exam: Neck Supple, Trachea Midline (Jagruti Kyle [employer]) Pulmonary Resp Exam: Clear Bilaterally, No Distress (Jagruti Kyle [employer]) Cardiology CV Exam: Good Perfusion (Jagruti Kyle [employer]) Gastrointestinal/Abdomen GI Exam: Soft, Non-Tender, Bowel Sounds Present, Non-Distended (Jagruti Kyle [employer]) Musculoskeletal MS Exam: Joints Intact (Jagruti Kyle [employer]) Integumentary Skin Exam: Warm, Intact (Jagruti Kyle [employer]) Extremeties Extremities Exam: Pedal Pulses Palpable, Trace Edema (Jagruti Kyle [employer]) Neurologic Neuro Exam: Alert, Awake, Oriented, Speech Clear, Moving All Extremities, No Focal Deficits (Jagrtui Kyle [employer]) Psychiatric Psych Exam: Appropriate Responses (Jagruti Kyle [employer]) VTE Prophylaxis VTE Remarks Xarelto (Jagruti Kyle [employer]) Assessment/Plan Problem List: (1) Urinary tract infection (2) Diabetes (3) Hypertension (4) Supratherapeutic INR (5) Atrial fibrillation (6) History of CVA (cerebrovascular accident) (7) Diarrhea Assessment/Plan 76-year-old presented to emergency room with multiple complaints, diarrhea, supratherapeutic INR, mild shortness of breath, dysuria -On Rocephin, UC + ecoli -continue Ceftin 250 mg PO BID Type 2 diabetes, blood glucose uncontrolled, up to 300s Continue with Accu-Cheks before meals and at bedtime -continue Lantus 10 units SQ q HS -continue Metformin Chronic A. fib went into afib with RVR, put on Amiodarone -card input appreciated -continue Cardizem 360 mg PO daily Continue with Xarelto -went back into Afib RVR, back on Amiodarone gtt, has been started on PO Diarrhea, resolving -neg for c. difficile Hyperkalemia, potassium 4.7 -resolved Supratherapeutic INR, INR 1.7 Attending discussed with patient's cardiology, patient started on Xarelto for improved compliance. Hypertension, hypertensive control Continue home medications Continue when necessary medication Physical therapy for evaluation and treatment Case management consultation for DC planning will hold dc, pt. back in afib, started on PO Amiodarone will see how she does overnight and dc tomorrow if stable Discussed with patient Discussed with Dr. Lynch Discussed with RN This patient was seen by myself and Dr. Lynch, this note is written on her behalf (Jagruti Kyle) Assessment/Plan patient seen and examined remains in A fib meds adjusted By cardiology on Amiodarone PO hopefully discharge in am plan of care discussed with patient d/w Jagruti GALLAGHER (Alicia Lynch MD) Problem Qualifiers (1) Urinary tract infection: Qualified Code: N30.01 - Acute cystitis with hematuria (2) Diabetes: (3) Hypertension: Qualified Code: I10 - Essential hypertension (4) Atrial fibrillation: Qualified Code: I48.0 - Paroxysmal atrial fibrillation Jagruti Kyle December 29, 2016 14:42 Alicia Lynch MD December 29, 2016 16:50
[2016-12-29] MEDS: RIVAROXABAN 20 MG TAB PO SCH (17:04)
[2016-12-29] MEDS: ACETAMINOPHEN 325 MG TAB PO PRN (17:06)
[2016-12-29] MEDS: MONTELUKAST SODIUM 10 MG TAB PO SCH (20:45)
[2016-12-29] MEDS: INSULIN DETEMIR 100 UNITS/ML VIAL SQ SCH (20:53)
[2016-12-30] VITALS: BP 120/59; PULSE 74; RESP 18; TEMP 98; O2SAT 95
[2016-12-30 04:00] VITALS: BP 137/61; PULSE 73; RESP 18; TEMP 97.6; O2SAT 93
[2016-12-30] MEDS: PHENAZOPYRIDINE HCL 100 MG TAB PO SCH ×2 (06:09→13:37)
[2016-12-30] MEDS: INSULIN ASPART SUPPLEMENTAL SCALE SQ SCH ×2 (06:17→11:00)
[2016-12-30 08:00] VITALS: BP 119/58; PULSE 88; RESP 18; TEMP 97.6; O2SAT 97
[2016-12-30 08:11] VITALS: PULSE 105; PULSE 88
[2016-12-30] MEDS: DOCUSATE SODIUM 50 MG/SENNA 8.6 MG TAB PO SCH (09:00)
[2016-12-30] MEDS: DILTIAZEM-CD 120 MG CAP ER PO SCH (09:00)
[2016-12-30] MEDS: DILTIAZEM-CD 240 MG CAP ER PO SCH (09:00)
[2016-12-30] MEDS: CEFUROXIME AXETIL 250 MG TAB PO SCH (09:14)
[2016-12-30] MEDS: LISINOPRIL 20 MG TAB PO SCH (09:15)
[2016-12-30] MEDS: PRAVASTATIN SOD 10 MG TAB PO SCH (09:15)
[2016-12-30] MEDS: metFORMIN HCL 500 MG TAB PO SCH (09:15)
[2016-12-30] MEDS: DIGOXIN 0.25 MG TAB PO SCH (09:16)
[2016-12-30] MEDS: AMIODARONE 200 MG TAB PO SCH (09:16)
[2016-12-30] MEDS: SODIUM CHLORIDE 0.9% FLUSH 10 ML FLUSH IV FLUSH SCH (09:17)
[2016-12-30] MEDS: ACETAMINOPHEN 325 MG TAB PO PRN (09:35)
[2016-12-30] MEDS ORDERED: AMIO200T PO (11:14)
--- NOTE | 2016-12-30 11:16 | HHI.PR ---
Subjective Subjective Remarks sleeping, no cp no sob no afib, SR off Amiodarone Review of Systems Constitutional Constitutional Remarks 12 point ROS completed, negative except as noted above Vitals/Results Intake & Output 12/29/16 12/29/16 12/30/16 14:59 22:59 06:59 Intake Total 360 ml 4 ml 240 ml Output Total 400 ml 400 ml Balance -40 ml 4 ml -160 ml Intake Oral 360 ml 240 ml IV Total 4 ml Output Urine Total 400 ml 400 ml # Voids 5 # Bowel Movements 1 1 1 Vital Signs Vital Signs Date Time Temp Pulse Resp B/P Pulse Ox O2 Delivery O2 Flow Rate FiO2 12/30/16 08:20 Room Air 12/30/16 08:11 105 12/30/16 08:11 88 12/30/16 08:00 97.6 88 18 119/58 97 12/30/16 04:00 97.6 73 18 137/61 93 12/30/16 00:00 98.0 74 18 120/59 95 12/29/16 20:30 Room Air 12/29/16 20:00 97.2 70 18 118/56 96 12/29/16 16:00 97.7 65 18 126/60 97 12/29/16 16:00 Nasal Cannula 2.00 12/29/16 12:00 Nasal Cannula 2.00 12/29/16 12:00 97.3 63 18 135/60 100 CBC/BMP: 12/29/16 0751 12/29/16 0751 Physical Exam General General Appearance: Well Developed, Well Nourished, No Acute Distress, Comfortable Eyes Eye Exam: Pupils Equal, Pupils Reactive Ears & Nose Ears & Nose Exam: Nasal Mucosa [place] Throat Throat Exam: Oral Mucosa [place] & Moist Neck Neck Exam: Neck Supple, Trachea Midline Pulmonary Resp Exam: Clear Bilaterally, No Distress Cardiology CV Exam: Good Perfusion Gastrointestinal/Abdomen GI Exam: Soft, Non-Tender, Bowel Sounds Present, Non-Distended Musculoskeletal MS Exam: Joints Intact Integumentary Skin Exam: Warm, Intact Extremeties Extremities Exam: Pedal Pulses Palpable, Trace Edema Neurologic Neuro Exam: Alert, Awake, Oriented, Speech Clear, Moving All Extremities, No Focal Deficits Psychiatric Psych Exam: Appropriate Responses VTE Prophylaxis VTE Remarks Xarelto Assessment/Plan Problem List: (1) Urinary tract infection (2) Diabetes (3) Hypertension (4) Supratherapeutic INR (5) Atrial fibrillation (6) History of CVA (cerebrovascular accident) (7) Diarrhea Assessment/Plan 76-year-old presented to emergency room with multiple complaints, diarrhea, supratherapeutic INR, mild shortness of breath, dysuria -On Rocephin, UC + ecoli -continue Ceftin 250 mg PO BID Type 2 diabetes, blood glucose uncontrolled, up to 300s Continue with Accu-Cheks before meals and at bedtime -continue Lantus 10 units SQ q HS -continue Metformin Chronic A. fib went into afib with RVR, put on Amiodarone-now resolved -card input appreciated -continue Cardizem 360 mg PO daily Continue with Xarelto -off Amiodarone gtt, continue with Amio 200 mg po bid. HR stable, SR. Diarrhea, resolving -neg for c. difficile Hyperkalemia, potassium 4.7 -resolved Supratherapeutic INR, INR 1.7 Attending discussed with patient's cardiology, patient started on Xarelto for improved compliance. Hypertension, stable Continue home medications Continue when necessary medication Physical therapy for evaluation and treatment Case management consultation for DC planning poss dc today, will wait for cardiology clearance Discussed with patient Discussed with Dr. Lynch Discussed with RN This patient was seen by myself and Dr. Lynch, this note is written on her behalf Problem Qualifiers (1) Urinary tract infection: Qualified Code: N30.01 - Acute cystitis with hematuria (2) Diabetes: (3) Hypertension: Qualified Code: I10 - Essential hypertension (4) Atrial fibrillation: Qualified Code: I48.0 - Paroxysmal atrial fibrillation Jagruti Kyle December 30, 2016 11:16
--- NOTE | 2016-12-30 11:16 | HHI.DS ---
Discharge Summary Admission Date December 29, 2016 at 08:45 Discharge Date: December 30, 2016 Admitting Diagnosis SUPRATHERAPEUTIC INR, UTI (1) Urinary tract infection (2) Diabetes (3) Hypertension (4) Supratherapeutic INR (5) At risk for bleeding associated with anticoagulants (6) Atrial fibrillation (7) History of CVA (cerebrovascular accident) (8) Diarrhea CBC/BMP: 12/29/16 0751 12/29/16 0751 Significant Findings Laboratory Tests Test 12/29/16 07:51 Mean Corpuscular Hemoglobin 26.8 PG (27.0-34.0) Estimat Glomerular Filtration 63 ML/MIN (>89) Rate Random Glucose 228 MG/DL (74-106) Alanine Aminotransferase 57 U/L (10-53) (ALT/SGPT) Alkaline Phosphatase 120 U/L (45-117) Albumin 2.7 GM/DL (3.4-5.0) Hospital Course This is a 76-year-old female who has come to the emergency room with abnormal labs. She was seen by her cytology technologist yesterday who reported an INR according to the record at 16. She was started on a new blood thinning medication but states that she has been having shortness of breath all day today. She is extremely anxious and was currently complaining of shortness of breath but her O2 sat is 97-99. She was on oxygen at 2 liters. She also complained of significant burning and dysuria when she goes to the bathroom. She has had diarrhea off and on for the past few weeks and states that she possibly had diarrhea this morning. She was a poor historian. She was recently discharged from the hospital on December 12 with pelvic pain and dysuria. Was evaluated in the ED and found with: LABORATORY DATA Diagnostic data, WBC count 7.1, RBC 4.89, 13.1 hemoglobin, hematocrit 39.6, platelet count 309, monocyte percentage auto 10.9. All of the rest of her differential blood count is normal. Chemistry, sodium is 131, potassium 5.0, chloride 100, carbon dioxide 21.4, anion gap 10, BUN 16, creatinine 0.97, GFR is 56, random glucose 112. She has an abnormal on alkaline phosphatase is 118. BNP is 23. Albumin 2.9. The patient's PT INR is greater than 16.7 and her aPTT is 109.5. Her urine is yellow, cloudy, pH 6.0, specific gravity 1.023, protein is 30, glucose is a 1000, ketones of 10, large amount of occult blood and a large amount of leukocyte esterase. Urobilinogen is less than 2. She has bacteria. We got a urine culture that is indicated. (1) Urinary tract infection (2) Diabetes (3) Hypertension (4) Supratherapeutic INR (5) Atrial fibrillation (6) History of CVA (cerebrovascular accident) (7) Diarrhea During the course of the hospitalization, the following took place: 76-year-old presented to emergency room with multiple complaints, diarrhea, supratherapeutic INR, mild shortness of breath, dysuria -put on IVF -started on Rocephin, UC + ecoli -changed to PO Ceftin 250 mg PO BID -Dysuria improved. Type 2 diabetes, blood glucose uncontrolled, up to 300s-improved harrison e Started Accu-Cheks before meals and at bedtime -continued Lantus 10 units SQ q HS -continued Metformin Chronic A. fib went into afib with RVR, required Cardizem gtt initially. Responded and continued on PO Cardizem one day later went back into afib with RVR. Put on Amiodarone gtt -card input appreciated -started on dig po -continued Cardizem 360 mg PO daily Continued with Xarelto -taken off Amiodarone gtt, continued with Amio 200 mg po bid. HR stable, SR. Diarrhea, resolved -neg for c. difficile Hyperkalemia, potassium 4.7 -resolved Supratherapeutic INR, initially, -given Vit K -came down to 1.7. Attending discussed with patient's cardiology, patient started on Xarelto for improved compliance.Coumadin was discontinued Hypertension, stable Continue home medications Continue when necessary medication Physical therapy for evaluation and treatment-HHC with PT recommended Case management consultation for DC planning Pt. stable, no more afib, no dysuria. Discharged home in stable condition f/u card, PCP diet-heart healthy activity-as tolerated Pt Condition on Discharge: Stable Discharge Disposition: Disch w/ Home Health Serv Discharge Instructions DIET: Follow Instructions for: Heart Healthy Diet Activities you can perform: Weight Bearing as Vance Follow up Referrals: Cardiology with [facility] PCP Follow-up New Medications: Amiodarone (Amiodarone) 200 Mg Tab 200 MG PO Q12HR atrial fibrillation #60 Ref 0 TAB Digoxin (Digoxin) 0.25 Mg Tab 0.25 MG PO DAILY elevated heart rate #30 Ref 0 TAB Rivaroxaban (Xarelto) 20 Mg Tab 20 MG PO Q24H Stroke Prevention #30 Ref 1 TAB ([Cefuroxime]) 250 MG TAB 250 MG PO Q12HR PRN Infection #6 Ref 0 TAB Continued Medications: Canagliflozin (Invokana) 100 Mg Tab 100 MG PO DAILY Take before 1st meal of day. Blood Sugar Management #30 Ref 0 TAB Diltiazem CD 24 HR (Diltiazem CD 24 HR) 360 Mg Capcr 360 MG PO DAILY HEART RATE CONTROL #30 Ref 1 CAP (This prescription has been renewed) Insulin Detemir Inj (Levemir Flextouch Pen Inj) 300 unit/3 ML Pen 25 UNITS SQ Blood Sugar Management Ref 0 PEN Meloxicam (Meloxicam) 15 Mg Tab 15 MG PO DAILY Arthritis Pain #30 Ref 0 TAB Metformin (Metformin) 1,000 Mg Tab 1000 MG PO BIDPC With meals Blood Sugar Management #60 Ref 0 TAB Montelukast (Montelukast) 10 Mg Tab 10 MG PO HS #30 Ref 0 TAB Quinapril (Quinapril) 20 Mg Tab 20 MG PO BID #60 Ref 0 TAB Simvastatin (Simvastatin) 5 Mg Tab 5 MG PO DAILY Cholesterol Management #30 Ref 0 TAB Discontinued Medications: Warfarin (Warfarin) 5 Mg Tab 5 MG PO DAILY Blood Clot Prevention #30 Ref 0 TAB Jagruti Kyle December 30, 2016 11:16
[2016-12-30 12:00] VITALS: BP 110/65; PULSE 91; RESP 18; TEMP 97.3; O2SAT 92
[2016-12-30 16:00] VITALS: BP_SYST 131; BP_SYST 137; BP_DIAS 63; BP_DIAS 69; PULSE 107; PULSE 99; RESP 18; TEMP 98; O2SAT 94; O2SAT 97
--- NOTE | 2016-12-30 16:52 | HHI.FF ---
Face to Face Verification Diagnosis: (1) Supratherapeutic INR (2) Atrial fibrillation Physical Therapy Order: Evaluate and Treat Home Health Nursing Order: Medical education I have seen patient Christen Dee on 12/30/16. My clinical findings support the need for the requested home health care services because: Deconditioned w/ increased weakness I certify that my clinical findings support that this patient is homebound because: Unsteady gait/balance Alicia Lynch MD December 30, 2016 16:52
== END 2016-12-30 17:44 | disposition home health service (06) | DRG 918 ==
LOC: NEPE 13:48 → INTOOBSV 17:18 → NEDA 17:18 → NEPFCDU 19:15 → N04B 12-26 10:17 → OBSVTOIN 12-29 08:45
PROVIDERS: ADMIT Specialist; ATTEND Specialist
DX: T45.511A Poisoning by anticoagulants, accidental (unintentional), initial encounter (principal); N17.9 Acute kidney failure, unspecified; E11.65 Type 2 diabetes mellitus with hyperglycemia; I48.0 Paroxysmal atrial fibrillation; I11.0 Hypertensive heart disease with heart failure; I50.32 Chronic diastolic (congestive) heart failure; E86.0 Dehydration; N30.01 Acute cystitis with hematuria; E87.1 Hypo-osmolality and hyponatremia; E44.1 Mild protein-calorie malnutrition; N32.89 Other specified disorders of bladder; I48.2 Chronic atrial fibrillation; J44.9 Chronic obstructive pulmonary disease, unspecified; R74.8 Abnormal levels of other serum enzymes; I25.10 Atherosclerotic heart disease of native coronary artery without angina pectoris; Z86.73 Personal history of transient ischemic attack (TIA), and cerebral infarction without residual deficits; R79.1 Abnormal coagulation profile; Z79.4 Long term (current) use of insulin; Z91.14 Patient's other noncompliance with medication regimen; Z95.0 Presence of cardiac pacemaker
CPT/HCPCS: 76937; 80048; 80053; 80076; 81001; 82948; 83880; 85025; 85027; 85610; 85730; 86850; 86900; 86901; 87077; 87086; 87186; 87493; 90471; 90732; 93005; 93306; 96374; G0009; G8987-GP; G8988-GP; J0282; J0696; J1160; J1815; J3430; J7030; J7040; J7060

== ENCOUNTER → 2017-02-16 | Outpatient (CLI) | payer MEDICARE, BC ==
[~2017-02-16] MED LIST changes: +AMIO200T PO; -CALA180T PO; +CANA100T PO; +Cefuroxime PO; +DIGO0.25 PO; -DILT240C7 PO; +DILT360C12 PO; -ENOX100P SQ; -FLEC100 PO; -FURO1TAB93 PO; -GLUC1000 PO; +INSU1INJ5 SQ; -LEVEMIR SQ; +MELO-1 PO; +METF1000 PO; -MOBI15TA PO; -MONT10TA2 PO; +MONT10TA4 PO; -POTA-267 PO; -QUIN20TA22 PO; +QUIN20TA4 PO; +SIMV5TAB3 PO; -WARF5TAB PO; +XARE20TA PO
--- NOTE | 2017-02-18 10:11 | RSPPFT ---
DATE OF PROCEDURE: 02/16/17 COMMENTS: VOLUMES DYNAMIC: FVC and FEV1 low normal. STATIC: FRC, RV and TLC normal. FLOWS: FEV1% normal; FEF 25-75 mildly reduced. DIFFUSION: Moderately reduced. FLOW VOLUME LOOP: Very mild terminal airflow obstruction. IMPRESSION: Very mild terminal airflow obstruction with some improvement post-bronchodilator and no significant hyperinflation. Diffusion capacity is mildly to moderately reduced. Clinical correlation is recommended.
== END ==
LOC: HRSP 12:13
PROVIDERS: ATTEND Internal Medicine
DX: R06.02 Shortness of breath (principal)
CPT/HCPCS: 94060; 94150; 94620; 94726; 94729; 95012

== ENCOUNTER → 2017-03-20 | Outpatient (CLI) | payer MEDICARE, BC ==
--- NOTE | 2017-03-30 11:07 | CARDEX ---
CARDIOPULMONARY EXERCISE REPORT Ms. Dee performed a maximal pulmonary stress test utilizing a step exercise protocol monitoring several cardiopulmonary parameters including gas exchange. Her overall capacity was actually normal at 80%. However, she exceeded her ventilator maximum and was quite dyspneic. She had mild de-saturation to 87% and an increase in breathing efficiency at 38%. Her cardiovascular response showed a heart rate of 80% of predicted at maximum capacity, normal O2 pulse attained, suggesting a normal stroke volume, and a flat end-tidal response suggesting decrease in cardiac output response to exercise. Her peak "R" value was 1.1 indicating a very good effort. Her blood pressure response was normal at 130/60 at rest and 180/80 at maximum exercise. In 5 minutes post she recovered to 140/70. IMPRESSION: In summary, she has a near normal aerobic capacity but exceeds her ventilator maximum at the end of exercise with mild de-saturation. Also has a somewhat flat end-tidal CO2 response suggesting an inadequate cardiac output response to exercise. Braulio ROBERSON M.D. lt 03/30/17
== END ==
LOC: HRSP 12:51
PROVIDERS: ATTEND Internal Medicine
DX: R06.02 Shortness of breath (principal)
CPT/HCPCS: 94621